=== PATIENT | female | born 1950 | race Caucasian/White ===

== ENCOUNTER 2023-06-26 09:47 | Outpatient (OUT) | payer MEDICARE, SELFPAY ==
--- NOTE | 2023-06-26 10:25 | MM_ITS ---
Patient Name: MEGHAN WU MR#: [id number] : 1950 Exam Date: 06/26/2023 Ordering Doctor: DR JABIER LAWRENCE . RADIOLOGY REPORT PROCEDURE: MM TOMOSYNTHESIS SCREENING BI COMPARISON: MG MAMM LT DIAG FU, 06/25/2022. MG MAMM SCREEN 3D PAMELA CAD, 06/12/2022. MG MAMM SCREEN 3D PAMELA CAD, 06/11/2021. MG MAMM PAMELA SCRN W CAD DIG, 05/02/2015. INDICATIONS: screening Calculator Name NCI Breast Cancer Risk Assessment Tool 5 Year Breast Cancer Risk 2.10% Lifetime Breast Cancer Risk 6.00% Personal Breast Cancer No Personal Ovarian Cancer No Treatments None Family Cancers Father with lymphoma cancer at age 88. LOCATION: [facility] BREAST COMPOSITION: Extremely dense, which lowers the sensitivity of mammography. FINDINGS: DIAGNOSTIC CATEGORY 0--INCOMPLETE: NEED ADDITIONAL IMAGING EVALUATION. RIGHT BREAST: No significant suspicious finding. No significant change has occurred. LEFT BREAST: Multiple partially circumscribed lesions within left breast. There uniform slight increase in size suggests this is due to differences in compression rather than each lesion increasing the same amount in size. No new lesions. Prior ultrasound evaluation showed simple cysts. As a precautionary measure and to help confirm a new baseline, spot magnification views and ultrasound evaluation is recommended. RECOMMENDATIONS: ADDITIONAL MAMMOGRAPHIC VIEWS REQUIRED: LEFT BREAST - LEFT CRANIOCAUDAL SPOT MAGNIFICATION VIEW - LEFT OBLIQUE SPOT MAGNIFICATION VIEW - ULTRASOUND: LEFT BREAST PLEASE NOTE: A NORMAL MAMMOGRAM DOES NOT EXCLUDE THE POSSIBILITY OF BREAST CANCER. A CLINICALLY SUSPICIOUS PALPABLE LUMP SHOULD BE BIOPSIED. Dictated by: Kory Palomo M.D. on 06/26/2023 at 12:27 Approved by: Kory Palomo M.D. on 06/26/2023 at 13:14
== END 2023-06-26 09:48 | disposition home or self-care (01) ==
LOC: MAMMO 09:52
PROVIDERS: PCP Family Medicine; Visit Provider Family Medicine
DX: Z12.31 Encounter for screening mammogram for malignant neoplasm of breast (principal); Z80.7 Family history of other malignant neoplasms of lymphoid, hematopoietic and related tissues; N64.89 Other specified disorders of breast
CPT/HCPCS: 77063; 77067

== ENCOUNTER 2023-07-10 09:53 | Outpatient (OUT) | payer MEDICARE, SELFPAY ==
--- NOTE | 2023-07-10 09:59 | US_ITS ---
Patient Name: MEGHAN WU MR#: [id number] : 1950 Exam Date: 07/10/2023 Ordering Doctor: DR JABIER LAWRENCE . RADIOLOGY REPORT PROCEDURE: MM DIAGNOSTIC MAMMO UNILAT LT, 07/10/2023, 10:01 US BREAST LT LIMITED, 07/10/2023, 10:53 COMPARISON: MM TOMOSYNTHESIS SCREENING BI, 06/26/2023. INDICATIONS: Abnormal Mammogram Left Breast R92.8 Calculator Name NCI Breast Cancer Risk Assessment Tool 5 Year Breast Cancer Risk 2.10% Lifetime Breast Cancer Risk 6.00% Personal Breast Cancer No Personal Ovarian Cancer No Treatments None Family Cancers Father with lymphoma cancer at age 88. LOCATION: [facility] BREAST COMPOSITION: Extremely dense, which lowers the sensitivity of mammography. FINDINGS: DIAGNOSTIC CATEGORY 2--BENIGN FINDING: Spot compression of the left breast demonstrates 2 focal partially circumscribed densities measuring 2.4 x 1.9 cm and 2.5 x 2.2 cm. Ultrasound demonstrates in the left breast at the 9 o'clock position a 2.6 x 1.4 x 2.5 cm area of anechoic echogenicity with no internal blood flow and at the 11 o'clock position a 2.8 x 1.3 x 2.2 cm area of anechoic echogenicity with no internal blood flow. Findings are most consistent with 2 simple cysts. No further evaluation is required. RECOMMENDATIONS: ROUTINE MAMMOGRAM AND CLINICAL EVALUATION IN 12 MONTHS. PLEASE NOTE: A NORMAL MAMMOGRAM DOES NOT EXCLUDE THE POSSIBILITY OF BREAST CANCER. A CLINICALLY SUSPICIOUS PALPABLE LUMP SHOULD BE BIOPSIED. Dictated by: Tulio Manzo MD on 07/10/2023 at 11:16 Approved by: Tulio Manzo MD on 07/10/2023 at 11:18
== END 2023-07-10 09:54 | disposition home or self-care (01) ==
LOC: MAMMO 09:53
PROVIDERS: PCP Family Medicine; Visit Provider Family Medicine
DX: R92.8 Other abnormal and inconclusive findings on diagnostic imaging of breast (principal); Z80.7 Family history of other malignant neoplasms of lymphoid, hematopoietic and related tissues
CPT/HCPCS: 76642; 77065

== ENCOUNTER 2024-07-12 08:21 | Outpatient (OUT) | payer MEDICARE, SELFPAY ==
--- NOTE | 2024-07-12 08:24 | MM_ITS ---
Patient Name: MEGHAN WU MR#: [id number] : 1950 Exam Date: 07/12/2024 Ordering Doctor: DR JABIER LAWRENCE . RADIOLOGY REPORT PROCEDURE: MM TOMOSYNTHESIS SCREENING BI COMPARISON: MM TOMOSYNTHESIS SCREENING BI, 06/26/2023. MM DIAGNOSTIC MAMMO UNILAT LT, 07/10/2023. INDICATIONS: Screening Calculator Name NCI Breast Cancer Risk Assessment Tool 5 Year Breast Cancer Risk 2.10% Lifetime Breast Cancer Risk 5.80% Personal Breast Cancer No Personal Ovarian Cancer No Treatments None Family Cancers Father with lymphoma cancer at age 88. LOCATION: [facility] BREAST COMPOSITION: The breasts are extremely dense, which lowers the sensitivity of mammography. FINDINGS: DIAGNOSTIC CATEGORY 2--BENIGN FINDING. NO CHANGE FROM COMPARISON. Scattered benign-appearing nodules are present. Scattered benign-appearing calcifications are present. Scattered benign-appearing lymph nodes are present. RIGHT BREAST: No significant suspicious finding. LEFT BREAST: No significant suspicious finding. RECOMMENDATIONS: ROUTINE MAMMOGRAM AND CLINICAL EVALUATION IN 12 MONTHS. PLEASE NOTE: A NORMAL MAMMOGRAM DOES NOT EXCLUDE THE POSSIBILITY OF BREAST CANCER. A CLINICALLY SUSPICIOUS PALPABLE LUMP SHOULD BE BIOPSIED. Dictated by: Tulio Manzo MD on 07/12/2024 at 10:18 Approved by: Tulio Manzo MD on 07/12/2024 at 10:21
--- OUTSIDE RECORDS SUMMARY | 2024-07-12 08:36 | XMS_ITS | CCD ---
Author Organization [facility] Care Team Providers Care Lawyer Name Role Phone HOWARD, DR EUGENE Admitting Unavailable HOWARD, DR EUGENE Attending Unavailable MISC, DR WARREN Primary Care Unavailable PENELOPEYER, DR EUGENE Consulting Unavailable ZOË, DR MARLO Crook Consulting Unavailable PENELOPEYER, DR EUGENE Admitting Unavailable HEMEYER, DR EUGENE Attending Unavailable MISC, DR WARREN Primary Care Unavailable PENELOPEYER, DR EUGENE Consulting Unavailable TRISHA, DR JUVE Cobian Consulting Unavailable Jo Khoury Unavailable DANIEL EM Referring Unavailable DANIEL EM Referring Unavailable DANIEL EM Referring Unavailable Alfred Lawrence MD Unavailable Alfred Lawernce MD Primary Care Provider Alfred Lawrence MD Unavailable Alfred Lawrence MD Primary Care Provider Alfred Lawrence MD Unavailable Alfred Lawrence MD Primary Care Provider DANIEL EM Attending Unavailable DANIEL EM Referring Unavailable ALFRED LAWRENCE Attending Unavailable JR. CARUSO GEORGE C Attending Unavaila DANIEL Raza Attending Unavailable BENNY HAY Attending Unavailable DANIEL EM Referring Unavailable ALFRED LAWRENCE Attending Unavailable DANIEL EM Attending Unavailable DANIEL EM Referring Unavailable MARIA DEL CARMEN TODD Attending Unavailable DANIEL EM Referring Unavailable DANIEL EM Attending Unavailable QUIANA SKELTON Attending Unavailable DANIEL EM Referring Unavailable FRED KING Attending Unavailable DANIEL EM Referring Unavailable FRED KING Attending Unavailable DANIEL EM Referring Unavailable KELBLEY, QUIANA Attending Unavailable EM, DANIEL J Referring Unavailable KELBLEY, QUIANA Attending Unavailable EM, DANIEL J Referring Unavailable BRINK, FRED Attending Unavailable EM, DANIEL J Referring Unavailable TODD, MARIA DEL CARMEN Attending Unavailable EM, DANIEL J Referring Unavailable BRINK, FRED Attending Unavailable EM, DANIEL J Referring Unavailable BRINK, FRED Attending Unavailable EM, DANIEL J Referring Unavailable KELBLEY, QUIANA Attending Unavailable EM, DANIEL J Referring Unavailable TODD, MARIA DEL CARMEN Attending Unavailable EM, DANIEL J Referring Unavailable BRINK, FRED Attending Unavailable EM, DANIEL J Referring Unavailable JR ELFEGO., FRANCES Sales Attending Unavaila ble JR ELFEGO., FRANCES Sales Referring Unavaila ble KELBLEY, QUIANA Attending Unavailable EM, DANIEL J Referring Unavailable KELBLEY, QUIANA Attending Unavailable EM, DANIEL J Referring Unavailable BRINK, FRED Attending Unavailable EM, DANIEL J Referring Unavailable KELBLEY, QUIANA Attending Unavailable EM, DANIEL J Referring Unavailable KELBLEY, QUIANA Attending Unavailable EM, DANIEL J Referring Unavailable JR ELFEGO., FRANCES Sales Attending Unavaila ble KELBLEY, QUIANA Attending Unavailable EM, DANIEL J Referring Unavailable KELBLEY, QUIANA Attending Unavailable EM, DANIEL J Referring Unavailable TODD, MARIA DEL CARMEN Attending Unavailable EM, DANIEL J Referring Unavailable TODD, MARIA DEL CARMEN Attending Unavailable EM, DANIEL J Referring Unavailable STEPJR BERNARDINO., FRANCES Sales Referring Unavaila ble BRINK, FRED Attending Unavailable EM, DANIEL J Referring Unavailable KELBLEY, QUIANA Attending Unavailable EM, DANIEL J Referring Unavailable STEPJR BERNARDINO., FRANCES Sales Attending Unavaila ble KELBLEY, QUIANA Attending Unavailable EM, DANIEL J Referring Unavailable KELBLEY, QUIANA Attending Unavailable EM, DANIEL J Referring Unavailable KELBLEY, QUIANA Attending Unavailable EM, DANIEL J Referring Unavailable KELBLEY, QUIANA Attending Unavailable EM, DANIEL J Referring Unavailable BRINK, FRED Attending Unavailable EM, DANIEL J Referring Unavailable KELBLEY, QUIANA Attending Unavailable EM, DANIEL J Referring Unavailable BRINK, FRED Attending Unavailable EM, DANIEL J Referring Unavailable BRINK, FRED Attending Unavailable EM, DANIEL J Referring Unavailable TODD, MARIA DEL CARMEN Attending Unavailable EM, DANIEL J Referring Unavailable STEPJR BERNARDINO., FRANCES Sales Attending Unavaila ble Allergies Allergy Classification Reported Allergen(s) Allergy Type Date of Onset Reaction(s) Facility (1 source) Alendronate Drug Allergy 05-24-2016 [facility] Repository (20 sources) Alendronate Drug Allergy 10-10-2021 [facility]ralg[facility] Medications Current Medications Medication Drug Class(es) Dates Sig (Normalized) Sig (Original) acetaminophen 325 mg / oxyCODONE hydrochloride 5 mg oral tablet (7 sources) Opioid Agonist Start: 02-11-2024 End: 03-01-2024 take 1 tablet by mouth every six hours for pain oxyCODONE-acetaminop hen (Percocet) 5-325 MG tablet Indications: Post-operative pain Take 1 tablet by mouth every 6 (six) hours if needed for moderate pain for up to 5 days 20 tablet 02/25/2024 03/01/2024 Active ascorbic acid 1000 mg oral tablet (20 sources) Vitamin C take 1 tablet by mouth in the morning Ascorbic Acid (vitamin C) 1000 MG tablet Take 1,000 mg by mouth in the morning. Active Calcium + D 315-200 MG-UNIT (1 source) take 1 tablet by mouth once daily at mealtime Calcium + D 315-200 MG-UNIT 1 tablet with meals Orally once a day Active calcium citrate 1040 mg oral tablet (20 sources) take 1 tablet by mouth in the morning calcium citrate 250 MG tablet Take 1 tablet by mouth in the morning. Active cholecalciferol 0.25 mg oral tablet (20 sources) Vitamin D take 1 tablet by mouth once daily cholecalciferol (Vitamin D-3) 250 MCG (24874 UT) tablet Take 10,000 Units by mouth Daily Winter dose Active take 1 tablet by mouth once natalia y cholecalciferol (Vitamin D-3) 125 MCG (5000 UT) tablet Take 5,000 Units by mouth Daily Summer Dose Active Eye Vitamins - (1 source) Eye Vitamins - O rally *please review for potential _update for e-prescription and drug interaction check* Active Multi Complete - (1 source) Multi Complete - Orally Active Multiple Vitamins-Minerals (Multi Complete) capsule (20 sources) Multiple Vitamins-Minerals (Multi Complete) capsule Orally Active rivaroxaban 20 mg oral tablet (20 sources) Factor Xa Inhibitor Start: 4 End: 4 take 1 tablet by mouth in the evening rivaroxaban (Xarelto) 20 MG tablet Indications: Acute deep vein thrombosis (DVT) of right peroneal vein (HCC) (CMS/HCC) Take 1 tablet (20 mg) by mouth in the evening. Take with meals for 11 days Take with food. Do not start before March 18, 2024. 11 tablet 03/18/2024 Active Start: 02-25-2024 End: 06-08-2024 take 1 tablet by mouth in the morning rivaroxaban (Xarelto) 15 MG tablet Indications: Acute deep vein thrombosis (DVT) of right peroneal vein (HCC) (CMS/HCC) Take 1 tablet (15 mg) by mouth in the morning and 1 tablet (15 mg) in the evening. Take with meals. Do all this for 21 days. Take with food.. 42 tablet 02/25/2024 06/08/2024 Discontinued (Therapy completed) Vitamin D3 5000IU 10,000 Units (1 source) Start: 05-15-2016 Vitamin D3 500 0IU 10,000 Units as directed orally daily *please review for potential _update for e-prescription and drug interaction check* 5,000 units spring/summerApr, Active VITAMIN K PO (20 sources) take 1 tablet by mouth in the morning VITAMIN K PO Take 1 tablet by mouth in the morning. Active Completed/Discontinued Medications Medication Drug Class(es) Dates Sig (Normalized) Sig (Original) azelastine hydrochloride 0.137 mg/actuat metered dose nasal spray (1 source) Histamine-1 Receptor Antagonist Start: 03-17-2018 take 2 puff(s) nasal route twice daily as needed Azelastine HCl 0.1 % 2 puff in each nostril Nasally Twice a day for 30 day(s) prn Feb, Not-Taking Vitamin C 1000 MG (1 source) take 1 tablet by mouth once daily Vitamin C 1000 MG 1 tablet Orally Once a day Not-Taking Problems Active Problems Problem Classification Problem Date Documented Da te Episodic/Chronic Chronic kidney disease (20 sources) Chronic kidney disease stage 2; Translations: [Chronic kidney disease, stage 2 (mild)] Onset: 10-17-2023 10-17-2023 Chronic Inflammation; infection of eye (except that caused by tuberculosis or sexually transmitteddisease) (1 source) Viral conjunctivitis, unspecified Episodic Nutritional deficiencies (20 sources) Vitamin D deficiency; Translations: [Vitamin D deficiency, unspecified] Onset: 10-17-2023 10-17-2023 Chronic Osteoarthritis (20 sources) Osteoarthritis of right knee joint; Translations: [Unilateral primary osteoarthritis, right knee] Onset: 10-17-2023 10-17-2023 Chronic Other connective tissue disease (20 sources) History of total knee arthroplasty; Translations: [Presence of right artificial knee joint] 03-31-2024 Chronic Other connective tissue disease (6 sources) Pain of right calf; Translations: [Pain in right lower leg] 04-20-2024 Episodic Other liver diseases (1 source) Non-alcoholic fatty liver; Translations: [Fatty (change of) liver, not elsewhere classified] Chronic Other liver diseases (20 sources) Fatty (change of) liver, not elsewhere classified; Translations: [Other chronic nonalcoholic liver disease] Onset: 10-17-2023 10-17-2023 Chronic Other nervous system disorders (20 sources) Chronic pain syndrome; Translations: [Chronic pain syndrome] Onset: 10-17-2023 10-17-2023 Chronic Other non-traumatic joint disorders (18 sources) Pain in right knee; Translations: [Pain in joint, lower leg] 04-05-2024 Episodic Other screening for suspected conditions (not mental disorders or infectious disease) (9 sources) Other abnormal and inconclusive findings on diagnostic imaging of breast; Translations: [Encounter for screening mammogram for malignant neoplasm of breast] Onset: 06-12-2022 Episodic Other upper respiratory disease (1 source) Allergic rhinitis; Translations: [Other allergic rhinitis] Chronic Phlebitis; thrombophlebitis and thromboembolism (5 sources) Acute embolism and thrombosis of right peroneal vein; Translations: [Acute venous embolism and thrombosis of deep vessels of distal lower extremity] 05-10-2024 Episodic Residual codes; unclassified (1 source) Family history of other malignant neoplasms of lymphoid, hematopoietic and related tissues; Translations: [FAM HX OTH MAL MEGHAN LYMPH HEMATPOETC] Onset: 06-28-2022 Episodic Residual codes; unclassified (1 source) Normal body mass index; Translations: [Other specified health status] Episodic Unclassified (2 sources) Acute pain of right knee 05-10-2024 Past or Other Problems Problem Classification Problem Date Documented Da te Episodic/Chronic Mood disorders (20 sources) Mood disorders Onset: 10-23-2023 10-23-2023 Other bone disease and musculoskeletal deformities (20 sources) Osteopenia; Translations: [Other specified disorders of bone density and structure, unspecified site] Onset: 10-17-2023 10-17-2023 Episodic Other nervous system disorders (3 sources) Postoperative pain ; Translations: [Other acute postprocedural pain] 02-16-2024 Episodic Results Test Name Value Interpretation Reference Range Facility [facility] US LOWER EXTREMITY VENO US DUPLEX RIGHTon 04-19-2024 [facility] US LOWER EXTREMITY VENOUS DUPLEX RIGHT EXAM: Right Lower Extremity Venous Ultrasound. REASON FOR EXAM: Hist of peroneal DVT. COMPARISON: Right lower extremity venous Doppler February 25, 2024. TECHNIQUE: Longitudinal and transverse grayscale, color Doppler, spectral wave analysis of the right lower extremity venous system. FINDINGS: The visualized common femoral, femoral, popliteal, peroneal, posterior tibial, greater saphenous veins showed normal compressibility, Doppler signal, response to augmentation and respiratory variability where applied. Peroneal veins are patent on the current study. IMPRESSION: No sonographic evidence of residual deep venous thrombosis. Peroneal veins are patent on the current exam, thrombus no longer visualized. This report is generated using voice recognition reporting (ZipZap). On occasion, [email or web address] erroneously drops words from the report or replaces the spoken word with a similar sounding word. Please call with any questions/concerns regarding the report. Dictated and transcribed 05/04/2024/tm This report has been electronically signed and approved by the interpreting radiologist. Normal Not Available XR Knee - right 1 or 2 Views on 04-05-2024 Imaging Result: AP and lateral of right knee showed surgical position and alignment of prosthetic components without evidence of loosening or wear to the femoral, tibial, or patellar components. The alignment appeared to be anatomic. There was no evidence of accelerated or asymmetric wear to the patellar button or tibial tray. There was no evidence of fracture and/or dislocation. Impression: Unremarkable right total knee arthroplasty. [facility] Radiology Study observation (narrative) [facility] US LOWER EXTREMITY VENO US DUPLEX RIGHTon 02-25-2024 [facility] US LOWER EXTREMITY VENOUS DUPLEX RIGHT EXAM: Right Lower Extremity Venous Ultrasound: REASON FOR EXAM: Right calf pain. COMPARISON: None TECHNIQUE: Longitudinal and transverse grayscale, color Doppler, spectral wave analysis of the right lower extremity deep venous system obtained. FINDINGS: There is normal Doppler signal and compressibility of the common femoral, femoral, popliteal, posterior tibial and saphenous veins. The peroneal vein does not compress. Distended with hypoechoic material. No color flow. Findings were called to Anoop Navarrete, the ordering provider February 25, 2024 at 11:00 a.m. IMPRESSION: Acute occlusive peroneal deep venous thrombus, below the knee. *This report is generated using voice recognition reporting (triptap). On occasion Attune RTDcribe erroneously drops words from the report or replaces the spoken word with similar sounding words. Please call with any questions/concerns regarding this report.* Dictated and transcribed 02/25/24/dpd This report has been electronically signed and approved by the interpreting radiologist. Electronically Signed Hong Frances II, M.D. 2024-02-25 11:41:07 Normal Not Available CBC AND AUTO DIFFon 01-14-20 24 ABSOLUTE BASOPHIL 0.0 X10E9/L Normal 0.0-0.2 [facility] Comment on above: Performed By: #### P INR, 95792-8 #### [facility] ([id number]) [address] [place] [address] 35023 #### CBCA, CMP #### [facility] ([id number]) [address] [facility], [address] [place] [address] ABSOLUTE NEUTROPHIL 4.1 X10E9/L Normal 1.5-6.6 [facility] Comment on above: Performed By: #### P INR, 37205-4 #### [facility] ([id number]) [address] [place] [address] 08407 #### CBCA, CMP #### [facility] ([id number]) [address], [address] [place] [address] Basophils/100 WBC (Bld) 0.6 % Normal [facility] Comment on above: Performed By: #### P INR, 49086-6 #### [facility] ([id number]) [address] [place] [address] 69788 #### CBCA, CMP #### [facility] ([id number]) [address] [facility], [facility] [address] [place] [address] Eosinophils (Bld) [#/Vol] 0.1 10*3/uL Normal 0.0-0.4 [facility] Comment on above: Performed By: #### P INR, 56286-5 #### [facility] ([id number]) [address] [place] [address] 34171 #### CBCA, CMP #### [facility] ([id number]) [address] [place] [address] [address] [place] [address] Eosinophils/100 WBC (Bld) 1.5 % Normal [facility] Comment on above: Performed By: #### P INR, 53358-1 #### [facility] ([id number]) [address] [place] [address] 37057 #### CBCA, CMP #### [facility] ([id number]) [address] [place] [address], [facility] [address] [place] [address] Erythrocyte distribution width (RBC) [Ratio] 13.0 % Normal 11.5-15.0 [facility] Comment on above: Performed By: #### P INR, 53332-3 #### [facility] ([id number]) [address] [place] [address] 85464 #### CBCA, CMP #### [facility] ([id number]) [address] [facility], [address] [place] [address] Hematocrit (Bld) [Volume fraction] 43.7 % Normal 35-47 [facility] Comment on above: Performed By: #### P INR, 75820-1 #### [facility] ([id number]) [address] [place] [address] 32075 #### CBCA, CMP #### [facility] ([id number]) [address], [address] [place] [address] Hemoglobin (Bld) [Mass/Vol] 14.4 g/dL Normal 11.7-15.5 [facility] Comment on above: Performed By: #### P INR, 64185-3 #### [facility] ([id number]) [address] [place] [address] 49628 #### CBCA, CMP #### [facility] ([id number]) [address], [address] [place] [address] Lymphocytes (Bld) [#/Vol] 1.6 10*3/uL Normal 1.0-3.5 [facility] Comment on above: Performed By: #### P INR, 15541-0 #### [facility] ([id number]) [address] [place] [address] 98660 #### CBCA, CMP #### [facility] ([id number]) [address] [facility], [address] [place] [address] Lymphocytes/100 WBC (Bld) 25.3 % Normal [facility] Comment on above: Performed By: #### P INR, 45561-9 #### [facility] ([id number]) [address] [place] [address] 77427 #### CBCA, CMP #### [facility] ([id number]) [address] [place] [address] MCH (RBC) [Entitic mass] 30.1 pg Normal 27-34 [facility] Comment on above: Performed By: #### P INR, 87853-8 #### [facility] ([id number]) [address] [place] [address] 30777 #### CBCA, CMP #### [facility] ([id number]) [address], [address] [place] [address] MCHC (RBC) [Mass/Vol] 32.9 g/dL Normal 32-36 [facility] Comment on above: Performed By: #### P INR, 26381-6 #### [facility] ([id number]) [address] [place] [address] 77581 #### CBCA, CMP #### [facility] ([id number]) [address], [address] [place] [address] MCV (RBC) [Entitic vol] 92 fL Normal 80-100 [facility] Comment on above: Performed By: #### P INR, 28538-4 #### [facility] ([id number]) [address] [place] [address] 96533 #### CBCA, CMP #### [facility] ([id number]) [address], [address] [place] [address] Monocytes (Bld) [#/Vol] 0.6 10*3/uL Normal 0-0.9 [facility] Comment on above: Performed By: #### P INR, 34339-3 #### [facility] ([id number]) [address] [place] [address] 78357 #### CBCA, CMP #### [facility] ([id number]) [address], [address] [place] [address] Monocytes/100 WBC (Bld) 8.6 % Normal [facility] Comment on above: Performed By: #### P INR, 00791-2 #### [facility] ([id number]) [address] [place] [address] 82785 #### CBCA, CMP #### [facility] ([id number]) [address], [address] [place] [address] Neutrophils/100 WBC (Bld) 64.0 % Normal [facility] Comment on above: Performed By: #### P INR, 86502-4 #### [facility] ([id number]) [address] [place] [address] 07229 #### CBCA, CMP #### [facility] ([id number]) [address], [address] [place] [address] Platelet mean volume (Bld) [Entitic vol] 8.2 fL Normal 7-12 [facility] Comment on above: Performed By: #### P INR, 59410-4 #### [facility] ([id number]) [address] [place] [address] 20720 #### CBCA, CMP #### [facility] ([id number]) [address] [place] [address] Platelets (Bld) [#/Vol] 261 10*3/uL Normal 150-450 [facility] Comment on above: Performed By: #### P INR, 63194-7 #### [facility] ([id number]) [address] [place] [address] 55036 #### CBCA, CMP #### [facility] ([id number]) [address] [place] [address] RBC COUNT 4.77 X10E12/L Normal 3.80-5.20 [facility] Comment on above: Performed By: #### P INR, 82777-2 #### [facility] ([id number]) [address] [place] [address] 29178 #### CBCA, CMP #### [facility] ([id number]) [address] [place] [address] WBC (Bld) [#/Vol] 6.4 10*3/uL Normal 4.0-11.0 [facility] Comment on above: Performed By: #### P INR, 53474-2 #### [facility] ([id number]) [address] [place] [address] 28659 #### CBCA, CMP #### [facility] ([id number]) [address], [address] [place] [address] COMPREHENSIVE METABOLIC PANE [facility] 01-14-2024 Albumin [Mass/Vol] 4.8 g/dL Normal 3.2-5.3 [facility] Comment on above: Performed By: #### P INR, 05405-0 #### [facility] ([id number]) [address] [place] [address] 16873 #### CBCA, CMP #### [facility] ([id number]) [address] [place] [address] ALP [Catalytic activity/Vol] 117 U/L Normal 39-130 [facility] Comment on above: Performed By: #### P INR, 36471-3 #### [facility] ([id number]) [address] [place] [address] 91154 #### CBCA, CMP #### [facility] ([id number]) [address] [place] [address] ALT [Catalytic activity/Vol] 20 U/L Normal 0-31 [facility] Comment on above: Performed By: #### P INR, 79542-2 #### [facility] ([id number]) [address] [place] [address] 32721 #### CBCA, CMP #### [facility] ([id number]) [address] [place] [address] Anion gap [Moles/Vol] 9 mmol/L Normal 5-15 [facility] Comment on above: Performed By: #### P INR, 27459-8 #### [facility] ([id number]) [address] [place] [address] 16979 #### CBCA, CMP #### [facility] ([id number]) [address] [facility], [address] [place] [address] AST [Catalytic activity/Vol] 25 U/L Normal 0-41 [facility] Comment on above: Performed By: #### P INR, 20190-2 #### [facility] ([id number]) [address] [place] [address] 87823 #### CBCA, CMP #### [facility] ([id number]) [facility] [facility] [place] [address] Bilirubin [Mass/Vol] 0.8 mg/dL Normal 0.3-1.2 [facility] Comment on above: Performed By: #### P INR, 05040-7 #### [facility] ([id number]) [address] [place] [address] 25674 #### CBCA, CMP #### [facility] ([id number]) [address] [facility], [address] [place] [address] Calcium [Mass/Vol] 10.3 mg/dL Normal 8.5-10.5 [facility] Comment on above: Performed By: #### P INR, 30547-3 #### [facility] ([id number]) [address] [place] [address] 89324 #### CBCA, CMP #### [facility] ([id number]) [address] [facility], [address] [place] [address] Chloride [Moles/Vol] 102 mmol/L Normal 98-109 [facility] Comment on above: Performed By: #### P INR, 48356-9 #### [facility] ([id number]) [address] [place] [address] 59584 #### CBCA, CMP #### [facility] ([id number]) [address] [place] [address] CO2 [Moles/Vol] 31 mmol/L Normal 22-32 [facility] Comment on above: Performed By: #### P INR, 26888-3 #### [facility] ([id number]) [address] [place] [address] 82681 #### CBCA, CMP #### [facility] ([id number]) [address] [facility], [address] [place] [address] Creatinine [Mass/Vol] 0.73 mg/dL Normal 0.40-1.00 [facility] Comment on above: Result Comment: METH OD TRACEABLE TO IDMS STANDARD Performed By: #### P INR, 95622-8 #### [facility] ([id number]) [address] [place] [address] #### CBCA, CMP #### [facility] ([id number]) [address], [address] [place] [address] GFR/1.73 sq M.predicted among non-blacks MDRD (S/P/Bld) [Vol rate/Area] 88 mL/min/{1.73_m2} Normal >59 [facility] Comment on above: Result Comment: Reported eGFR is based on the CKD-EPI 2020 equation that does not use a race coefficient. Performed By: #### P INR, 59222-2 #### [facility] ([id number]) [address] [place] [address] #### CBCA, CMP #### [facility] ([id number]) [address], [address] [place] [address] Glucose [Mass/Vol] 79 mg/dL Normal 65-99 [facility] Comment on above: Performed By: #### P INR, 19009-3 #### [facility] ([id number]) [address] [place] [address] #### CBCA, CMP #### [facility] ([id number]) [address], [address] [place] [address] Potassium [Moles/Vol] 3.8 mmol/L Normal 3.5-5.0 [facility] Comment on above: Performed By: #### P INR, 44832-7 #### [facility] ([id number]) [address] [place] [address] #### CBCA, CMP #### [facility] ([id number]) [facility], [address] [place] [address] Protein [Mass/Vol] 7.6 g/dL Normal 6.0-8.0 [facility] Comment on above: Performed By: #### P INR, 20866-2 #### [facility] ([id number]) [address] [place] [address] #### CBCA, CMP #### [facility] ([id number]) [facility], [address] [place] [address] Sodium [Moles/Vol] 142 mmol/L Normal 134-146 [facility] Comment on above: Performed By: #### P INR, 87449-8 #### [facility] ([id number]) [address] [place] [address] #### CBCA, CMP #### [facility] ([id number]) [address], [address] [place] [address] Urea nitrogen [Mass/Vol] 14 mg/dL Normal 5-27 [facility] Comment on above: Performed By: #### P INR, 06737-1 #### [facility] ([id number]) [address] [place] [address] 76785 #### CBCA, CMP #### [facility] ([id number]) [address], [address] [place] [address] PROTIME AND INRon 01-14-2024 INR Coag (PPP) [Relative time] 1.0 {INR} Normal 0.8-1.1 [facility] Comment on above: Performed By: #### P INR, 24010-2 #### [facility] ([id number]) [address] [place] [address] #### CBCA, CMP #### [facility] ([id number]) [address], [address] [place] [address] PT Coag (PPP) [Time] 12.1 s Normal 9.8-13.2 [facility] Comment on above: Result Comment: NEW REFERENCE RANGE Performed By: #### P INR, 64882-3 #### [facility] ([id number]) [address] [place] [address] #### CBCA, CMP #### [facility] ([id number]) [address], [address] [place] [address] URINALYSISon 01-14-2024 Bilirubin Ql (U) Negative Normal NEG [facility] Comment on above: Performed By: #### U A #### [facility] ([id number]) [address], [address] [place] [address] BLOOD/HGB Negative Normal NEG [facility] Comment on above: Performed By: #### U A #### [facility] ([id number]) [address], [address] [place] [address] Color (U) YELLOW Normal YELLOW [facility] Comment on above: Performed By: #### U A #### [facility] ([id number]) [address], [address] [place] [address] Glucose Ql (U) Negative Normal NEG [facility] Comment on above: Performed By: #### U A #### [facility] ([id number]) [address], [address] [place] [address] Ketones Ql (U) Negative Normal NEG [facility] Comment on above: Performed By: #### U A #### [facility] ([id number]) [address], [address] [place] [address] Leukocyte esterase Test strip Ql (U) Negative Normal NEG [facility] Comment on above: Performed By: #### U A #### [facility] ([id number]) [address], [address] [place] [address] Nitrite Ql (U) Negative Normal NEG [facility] Comment on above: Performed By: #### U A #### [facility] ([id number]) [address], [address] [place] [address] pH (U) 7.5 [pH] Normal 5.0-8.5 [facility] Comment on above: Performed By: #### U A #### [facility] ([id number]) [address], [address] [place] [address] Protein Ql (U) Negative Normal NEG [facility] Comment on above: Performed By: #### U A #### [facility] ([id number]) [address], [address] [place] [address] Specific gravity (U) [Rel density] 1.006 Normal 1.003-1.035 [facility] Comment on above: Performed By: #### U A #### [facility] ([id number]) [address], [address] [place] [address] TURBIDITY CLEAR Normal CLEAR [facility] Comment on above: Performed By: #### U A #### [facility] ([id number]) [address], [address] [place] [address] Urobilinogen (U) [Mass/Vol] mg/dL Normal <1.1 [facility] Comment on above: Performed By: #### U A #### [facility] ([id number]) [address], [address] [place] [address] URINE CULTUREon 01-14-2024 Bacteria identified Cx Nom (U) CULTURE RESULTS <10,000 ORGANISMS/ML NORMAL URO GENITAL JAZMIN Normal [facility] Comment on above: Performed By: #### 6 30-4 #### [facility] ([id number]) [address] [place] [address] aPTT Coag (PPP) [Time]on aPTT Coag (Bld) [Time] 35 s Normal 26-37 [facility] Comment on above: Result Comment: NEW REFERENCE RANGE Performed By: #### P INR, 83242-3 #### [facility] ([id number]) [address] [place] [address], [place] [address] #### CBCA, CMP #### [facility] ([id number]) [address], [address] [place] [address] XR Knee Complete Right*on XR Knee Complete Right* CLINICAL HISTORY: Right knee pain for 4-5 months. No recent injury. COMPARISON: None. RESULT: No acute fracture. No dislocation. Small joint effusion. Tricompartmental osteophytes. Mild to moderate medial and lateral compartment narrowing. Soft tissues unremarkable. IMPRESSION: No acute osseous findings. Osteoarthritis. Report reported and signed by Tarun Enriquez on 11/04/2022 1305 Normal [facility] Director Content Marketing MG MAMM LT DIAG FUon 022 MG MAMM LT DIAG FU Patient: NAZIA WU Exam Date: 06/25/2022 : 1950 Gender:F Ordering : DR ALFRED LAWRENCE . Admission #: [id number] Family : Order #: [id number] CLICK HERE TO VIEW EXAM RADIOLOGY REPORT PROCEDURE: MAMMOGRAM LEFT DIAGNOSTIC DIGITAL FOLLOW UP, 06/25/2022, 13:50 ULTRASOUND BREAST LEFT LIMITED, 06/25/2022, 14:25 COMPARISON: MG MAMM SCREEN 3D PAMELA CAD, 06/12/2022. INDICATIONS: Abnormal findings on diagnostic imaging of breast Calculator Name NCI Breast Cancer Risk Assessment Tool 5 Year Breast Cancer Risk 2.10% Lifetime Breast Cancer Risk 6.30% Personal Breast Cancer No Personal Ovarian Cancer No Treatments None Family Cancers Father with lymphoma cancer at age 88. LOCATION: [facility] BREAST COMPOSITION: Extremely dense, which lowers the sensitivity of mammography. FINDINGS: DIAGNOSTIC CATEGORY 2--BENIGN FINDING: Two spot compression views of the left breast demonstrate persistent focal well-circumscribed masses, both are seen on the CC projection measuring 1.8 x 2.2 cm and 3.0 x 2.1 cm. Single lesion seen on the MLO projection 2.4 x 1.8 cm. Ultrasound demonstrates 2 focal lesions at the 9 o'clock position in the area oval anechoic echogenicity within imperceptible met wall measuring 2.2 x 1.4 x 1.1 cm with increased acoustic through transmission consistent with a simple cyst. At the 11 o'clock position in oval lesion with some internal echoes measuring 1.9 x 1.5 x 1.1 cm. Both lesions demonstrate increased acoustic through transmission. The 11 o'clock lesion likely represents a complex cyst RECOMMENDATIONS: ROUTINE MAMMOGRAM AND CLINICAL EVALUATION IN 12 MONTHS. PLEASE NOTE: A NORMAL MAMMOGRAM DOES NOT EXCLUDE THE POSSIBILITY OF BREAST CANCER. A CLINICALLY SUSPICIOUS PALPABLE LUMP SHOULD BE BIOPSIED. Dictated by: Juve Manzo MD on 06/25/2022 at 15:04 Approved by: Juve Manzo MD on 06/25/2022 at 15:15 Normal [facility] US BREAST LEFT LIMITEDon US BREAST LEFT LIMITED Patient: ROSE WU Exam Date: 06/25/2022 : 1950 Gender:F Ordering : DR ALFRED LAWRENCE . Admission #: [id number] Family : Order #: [id number] CLICK HERE TO VIEW EXAM RADIOLOGY REPORT PROCEDURE: MAMMOGRAM LEFT DIAGNOSTIC DIGITAL FOLLOW UP, 06/25/2022, 13:50 ULTRASOUND BREAST LEFT LIMITED, 06/25/2022, 14:25 COMPARISON: MG MAMM SCREEN 3D PAMELA CAD, 06/12/2022. INDICATIONS: Abnormal findings on diagnostic imaging of breast Calculator Name NCI Breast Cancer Risk Assessment Tool 5 Year Breast Cancer Risk 2.10% Lifetime Breast Cancer Risk 6.30% Personal Breast Cancer No Personal Ovarian Cancer No Treatments None Family Cancers Father with lymphoma cancer at age 88. LOCATION: [facility] BREAST COMPOSITION: Extremely dense, which lowers the sensitivity of mammography. FINDINGS: DIAGNOSTIC CATEGORY 2--BENIGN FINDING: Two spot compression views of the left breast demonstrate persistent focal well-circumscribed masses, both are seen on the CC projection measuring 1.8 x 2.2 cm and 3.0 x 2.1 cm. Single lesion seen on the MLO projection 2.4 x 1.8 cm. Ultrasound demonstrates 2 focal lesions at the 9 o'clock position in the area oval anechoic echogenicity within imperceptible met wall measuring 2.2 x 1.4 x 1.1 cm with increased acoustic through transmission consistent with a simple cyst. At the 11 o'clock position in oval lesion with some internal echoes measuring 1.9 x 1.5 x 1.1 cm. Both lesions demonstrate increased acoustic through transmission. The 11 o'clock lesion likely represents a complex cyst RECOMMENDATIONS: ROUTINE MAMMOGRAM AND CLINICAL EVALUATION IN 12 MONTHS. PLEASE NOTE: A NORMAL MAMMOGRAM DOES NOT EXCLUDE THE POSSIBILITY OF BREAST CANCER. A CLINICALLY SUSPICIOUS PALPABLE LUMP SHOULD BE BIOPSIED. Dictated by: Juve Manzo MD on 06/25/2022 at 15:04 Approved by: Juve Manzo MD on 06/25/2022 at 15:15 Normal [facility] MG MAMM SCREEN 3D PAMELA CADon 06-12-2022 MG MAMM SCREEN 3D PAMELA CAD Patient: ROSE WU Exam Date: 06/12/2022 : 1950 Gender:F Ordering : DR ALFRED LAWRENCE . Admission #: [id number] Family : Order #: [id number] CLICK HERE TO VIEW EXAM RADIOLOGY REPORT PROCEDURE: MAMMOGRAM SCREENING 3D BILATERAL CAD COMPARISON: MG MAMM SCREEN 3D PAMELA CAD, 06/11/2021. MG MAMM SCREEN PAMELA W CAD, 06/09/2020. INDICATIONS: Screening mammography Calculator Name NCI Breast Cancer Risk Assessment Tool 5 Year Breast Cancer Risk 2.10% Lifetime Breast Cancer Risk 6.30% Personal Breast Cancer No Personal Ovarian Cancer No Treatments None Family Cancers Father with lymphoma cancer at age 88. LOCATION: [facility] BREAST COMPOSITION: Extremely dense, which lowers the sensitivity of mammography. FINDINGS: DIAGNOSTIC CATEGORY 0--INCOMPLETE: NEED ADDITIONAL IMAGING EVALUATION. RIGHT BREAST: No significant suspicious finding. Scattered benign-appearing calcifications are present. No significant change has occurred. LEFT BREAST: Several partially circumscribed masses versus cyst within left breast predominant involving the upper lower inner quadrants and likely lower-outer quadrant. Two largest lesions are 2.6 cm in 2.1 cm. Stable benign calcifications. Spot magnification views and ultrasound evaluation recommended. RECOMMENDATIONS: ADDITIONAL MAMMOGRAPHIC VIEWS REQUIRED: LEFT BREAST - LEFT CRANIOCAUDAL SPOT MAGNIFICATION VIEW - LEFT OBLIQUE SPOT MAGNIFICATION VIEW - ULTRASOUND: LEFT BREAST upper inner, lower inner, lower outer quadrant. PLEASE NOTE: A NORMAL MAMMOGRAM DOES NOT EXCLUDE THE POSSIBILITY OF BREAST CANCER. A CLINICALLY SUSPICIOUS PALPABLE LUMP SHOULD BE BIOPSIED. Dictated by: Marlo Palomo M.D. on 06/12/2022 at 14:50 Approved by: Marlo Palomo M.D. on 06/12/2022 at 14:57 Normal [facility] MRI Hand w/o + w/ Righton MRI Hand w/o + w/ Right HISTORY: Ulnar-sided hand pain for 6 weeks. Mass. COMPARISON: Radiographs of the hand 02/11/2022 TECHNIQUE: Multiplanar multisequence MRI of the hand was performed without and with contrast FINDINGS: A marker was placed on the dorsal aspect of the hand at the level of the fourth and fifth metatarsal heads. No solid enhancing mass identified deep to this marker. A blood vessel courses deep to this marker there is mild fluid/edema adjacent to this blood vessel. Flexor and extensor tendons are intact. Musculature of the hand appears normal. No fracture. Degenerative changes of the first carpometacarpal joint. IMPRESSION: A small amount of fluid and edema surrounding a blood vessel deep to the marker placed on the skin of the hand most likely represents a focal area of superficial phlebitis. Continued clinical surveillance recommended. Report reported and signed by LARRY CARDONA on 03/07/2022 1304 Normal [facility] Director Content Marketing Vital Signs Date Time Vital Sign Value Performing Clinician Facility 02-09-2023 13:00-0400 Body height 172.72 cm Jo Khoury Other [facility] Other 02-09-2023 13:00-0400 Body mass index (BMI) [Ratio] 26 kg/m2 Jo Villaley Other [facility] Other 02-09-2023 13:00-0400 Body temperature 97.4 [degF] Jo Iraida Other [facility] Other 02-09-2023 13:00-0400 Body weight 77.57 kg Jo Iraida Other [facility] Other 02-09-2023 13:00-0400 Diastolic blood pressure 78 mm[Hg] Jo Iraida Other [facility] Other 02-09-2023 13:00-0400 Respiratory rate 18 /min Jo Iraida Other [facility] Other 02-09-2023 13:00-0400 SaO2% (BldA) [Mass fraction] 97 % Jo Villaley Other [facility] Other 02-09-2023 13:00-0400 Systolic blood pressure 114 mm[Hg] Jo Iraida Other [facility] Other Encounters Encounter Date Encounter Type Care Provider Facility Start: 06-08-2024 End: 06-08-2024 Office outpatient visit 15 minutes Jr. Frances Caruso DO Work Phone: [facility] Comment on above: Acute pain of right knee (Primary Dx) Start: 06-08-2024 End: 06-08-2024 ambulatory FRANCES BOLDEN Not Available Start: 06-07-2024 End: 06-07-2024 Bamboo flowsheet Maria Del Carmen Todd PT [facility] Start: 06-07-2024 End: 06-07-2024 Bamboo flowsheet Maria Del Carmen Todd PT [facility] Start: 06-07-2024 End: 06-07-2024 ambulatory Maria Del Carmen Todd PT [facility] Comment on above: Primary osteoarthrit is of right knee (Primary Dx); Acute pain of right knee; S/P TKR (total knee replacement), right Start: 06-04-2024 End: 06-04-2024 Bamboo flowsheet Fred Brink BEHAVIORAL SPECIALIST [facility] Start: 06-04-2024 End: 06-04-2024 Bamboo flowsheet Fred Brink BEHAVIORAL SPECIALIST [facility] Start: 06-04-2024 End: 06-04-2024 ambulatory Fred Brink BEHAVIORAL SPECIALIST [facility] Comment on above: Primary osteoarthrit is of right knee (Primary Dx); Acute pain of right knee; S/P TKR (total knee replacement), right Start: 05-31-2024 End: 05-31-2024 Bamboo flowsheet Fred Brink BEHAVIORAL SPECIALIST [facility] Start: 05-31-2024 End: 05-31-2024 Bamboo flowsheet Fred Brink BEHAVIORAL SPECIALIST [facility] Start: 05-31-2024 End: 05-31-2024 ambulatory Fred Brink BEHAVIORAL SPECIALIST [facility] Comment on above: Primary osteoarthrit is of right knee (Primary Dx); Acute pain of right knee; S/P TKR (total knee replacement), right Start: 05-26-2024 End: 05-26-2024 Bamboo flowsheet Quiana Cruzy BEHAVIORAL SPECIALIST [facility] Start: 05-26-2024 End: 05-26-2024 Bamboo flowsheet Quiana Fordebley BEHAVIORAL SPECIALIST [facility] Start: 05-26-2024 End: 05-26-2024 ambulatory Quiana Cruzy BEHAVIORAL SPECIALIST [facility] Comment on above: Primary osteoarthrit is of right knee (Primary Dx); Acute pain of right knee; S/P TKR (total knee replacement), right Start: 05-24-2024 End: 05-24-2024 Bamboo flowsheet Fred Brink BEHAVIORAL SPECIALIST [facility] Start: 05-24-2024 End: 05-24-2024 Bamboo flowsheet Fred Brink BEHAVIORAL SPECIALIST [facility] Start: 05-24-2024 End: 05-24-2024 ambulatory Fred King BEHAVIORAL SPECIALIST [facility] Comment on above: Primary osteoarthrit is of right knee (Primary Dx); Acute pain of right knee; S/P TKR (total knee replacement), right Start: 05-21-2024 End: 05-21-2024 Bamboo flowsheet Quiana Fordebley BEHAVIORAL SPECIALIST [facility] Start: 05-21-2024 End: 05-21-2024 Bamboo flowsheet Quiana Fordebley BEHAVIORAL SPECIALIST [facility] Start: 05-21-2024 End: 05-21-2024 ambulatory Quiana Fordebley BEHAVIORAL SPECIALIST [facility] Comment on above: Primary osteoarthrit is of right knee (Primary Dx); S/P TKR (total knee replacement), right; Acute pain of right knee Start: 05-18-2024 End: 05-18-2024 Bamboo flowsheet Quiana Fordebley BEHAVIORAL SPECIALIST [facility] Start: 05-18-2024 End: 05-18-2024 Bamboo flowsheet Quiana Fordebley BEHAVIORAL SPECIALIST [facility] Start: 05-18-2024 End: 05-18-2024 ambulatory Quiaan Fordebley BEHAVIORAL SPECIALIST [facility] Comment on above: Primary osteoarthrit is of right knee (Primary Dx); S/P TKR (total knee replacement), right; Acute pain of right knee Start: 05-13-2024 End: 05-13-2024 Bamboo flowsheet Quiana Fordebley BEHAVIORAL SPECIALIST [facility] Start: 05-13-2024 End: 05-13-2024 Bamboo flowsheet Quiana Fordebley BEHAVIORAL SPECIALIST [facility] Start: 05-13-2024 End: 05-13-2024 ambulatory Quiana Fordebley BEHAVIORAL SPECIALIST [facility] Comment on above: Primary osteoarthrit is of right knee (Primary Dx); S/P TKR (total knee replacement), right; Acute pain of right knee Start: 05-11-2024 End: 05-11-2024 Bamboo flowsheet Quianajanes Fordebley BEHAVIORAL SPECIALIST [facility] Start: 05-11-2024 End: 05-11-2024 Bamboo flowsheet Quiana Kelbley BEHAVIORAL SPECIALIST [facility] Start: 05-11-2024 End: 05-11-2024 ambulatory Quiana Skelton BEHAVIORAL SPECIALIST [facility] Comment on above: Primary osteoarthrit is of right knee (Primary Dx); S/P TKR (total knee replacement), right; Acute pain of right knee Start: 05-10-2024 End: 05-10-2024 Bamboo flowsheet Jr. Frances Caruso DO Work Phone: [facility] Start: 05-10-2024 End: 05-10-2024 Bamboo flowsheet Jr. Frances Caruso DO Work Phone: [facility] Start: 05-10-2024 End: 05-10-2024 ambulatory FRANCES BOLDEN Not Available Start: 05-10-2024 End: 05-10-2024 Postop follow up visit related to original px Jr. Frances Sales Stepbernardino DO Work Phone: [facility] Comment on above: History of right kne e joint replacement (Primary Dx); Acute pain of right knee; Acute deep vein thrombosis (DVT) of right peroneal vein (HCC) (CMS/HCC) Start: 05-06-2024 End: 05-06-2024 Bamboo flowsheet Quiana Skelton BEHAVIORAL SPECIALIST [facility] Start: 05-06-2024 End: 05-06-2024 Bamboo flowsheet Quiana Skelton BEHAVIORAL SPECIALIST [facility] Start: 05-06-2024 End: 05-06-2024 ambulatory Quiana Skelton BEHAVIORAL SPECIALIST [facility] Comment on above: Primary osteoarthrit is of right knee (Primary Dx); S/P TKR (total knee replacement), right Start: 05-04-2024 End: 05-04-2024 Bamboo flowsheet Fred Brink BEHAVIORAL SPECIALIST [facility] Start: 05-04-2024 End: 05-04-2024 Bamboo flowsheet Fred Brink BEHAVIORAL SPECIALIST [facility] Start: 05-04-2024 End: 05-04-2024 ambulatory Fred King BEHAVIORAL SPECIALIST [facility] Comment on above: Primary osteoarthrit is of right knee (Primary Dx); S/P TKR (total knee replacement), right Start: 05-03-2024 End: 05-03-2024 ambulatory FRANCES BOLDEN Not Available Start: 04-30-2024 End: 04-30-2024 Bamboo flowsheet Maria Del Carmen Todd PT [facility] Start: 04-30-2024 End: 04-30-2024 Bamboo flowsheet Maria Del Carmen Todd PT [facility] Start: 04-30-2024 End: 04-30-2024 ambulatory Maria Del Carmen Todd PT [facility] Comment on above: Primary osteoarthrit is of right knee (Primary Dx); S/P TKR (total knee replacement), right Start: 04-28-2024 End: 04-29-2024 ambulatory Maria Del Carmen Todd PT [facility] Comment on above: Primary osteoarthrit is of right knee (Primary Dx); S/P TKR (total knee replacement), right Start: 04-23-2024 End: 04-23-2024 Bamboo flowsheet Quiana Skelton BEHAVIORAL SPECIALIST [facility] Start: 04-23-2024 End: 04-23-2024 Bamboo flowsheet Quiana Skelton BEHAVIORAL SPECIALIST [facility] Start: 04-23-2024 End: 04-23-2024 ambulatory Quiana Skelton BEHAVIORAL SPECIALIST [facility] Comment on above: Primary osteoarthrit is of right knee (Primary Dx); S/P TKR (total knee replacement), right Start: 04-21-2024 End: 04-21-2024 ambulatory Quiana Skelton BEHAVIORAL SPECIALIST [facility] Comment on above: Primary osteoarthrit is of right knee (Primary Dx); S/P TKR (total knee replacement), right Start: 04-19-2024 End: 04-19-2024 Bamboo flowsheet Jr. Frances Caruso DO Work Phone: [facility] Start: 04-19-2024 End: 04-19-2024 Bamboo flowsheet Jr. Frances Caruso DO Work Phone: [facility] Start: 04-19-2024 End: 04-19-2024 ambulatory FRANCES BOLDEN Not Available Start: 04-19-2024 End: 04-19-2024 Postop follow up visit related to original px Jr. Frances Caruso DO Work Phone: [facility] Comment on above: S/P TKR (total knee replacement), right (Primary Dx); Right calf pain; Acute pain of right knee Start: 04-16-2024 End: 04-16-2024 Bamboo flowsheet Quiana Kelbley BEHAVIORAL SPECIALIST [facility] Start: 04-16-2024 End: 04-16-2024 Bamboo flowsheet Quiana Kelbley BEHAVIORAL SPECIALIST [facility] Start: 04-16-2024 End: 04-16-2024 ambulatory Quiana Kelbley BEHAVIORAL SPECIALIST [facility] Comment on above: Primary osteoarthrit is of right knee (Primary Dx); S/P TKR (total knee replacement), right Start: 04-14-2024 End: 04-14-2024 Bamboo flowsheet Quiana Kelbley BEHAVIORAL SPECIALIST [facility] Start: 04-14-2024 End: 04-14-2024 Bamboo flowsheet Quiana Kelbley BEHAVIORAL SPECIALIST [facility] Start: 04-14-2024 End: 04-14-2024 ambulatory Quiana Kelbley BEHAVIORAL SPECIALIST [facility] Comment on above: Primary osteoarthrit is of right knee (Primary Dx); S/P TKR (total knee replacement), right Start: 04-12-2024 End: 04-12-2024 Bamboo flowsheet Fred Brink BEHAVIORAL SPECIALIST [facility] Start: 04-12-2024 End: 04-12-2024 Bamboo flowsheet Fred Brink BEHAVIORAL SPECIALIST [facility] Start: 04-12-2024 End: 04-12-2024 ambulatory Fred Brink BEHAVIORAL SPECIALIST [facility] Comment on above: Primary osteoarthrit is of right knee (Primary Dx); S/P TKR (total knee replacement), right Start: 04-09-2024 End: 04-09-2024 Bamboo flowsheet Quiana Kelbley BEHAVIORAL SPECIALIST [facility] Start: 04-09-2024 End: 04-09-2024 Bamboo flowsheet Quiana Kelbley BEHAVIORAL SPECIALIST [facility] Start: 04-09-2024 End: 04-09-2024 ambulatory Quiana Kelbley BEHAVIORAL SPECIALIST [facility] Comment on above: Primary osteoarthrit is of right knee (Primary Dx); S/P TKR (total knee replacement), right Start: 04-07-2024 End: 04-07-2024 Bamboo flowsheet Quiana Skelton BEHAVIORAL SPECIALIST [facility] Start: 04-07-2024 End: 04-07-2024 Bamboo flowsheet Quiana Skelton BEHAVIORAL SPECIALIST [facility] Start: 04-07-2024 End: 04-07-2024 ambulatory Quiana Skelton BEHAVIORAL SPECIALIST [facility] Comment on above: Primary osteoarthrit is of right knee (Primary Dx); S/P TKR (total knee replacement), right; Preop examination Start: 04-07-2024 End: 04-07-2024 Preprocedural examination done Quiana Skelton BEHAVIORAL SPECIALIST [facility] Start: 04-05-2024 End: 04-05-2024 Bamboo flowsheet Fred King BEHAVIORAL SPECIALIST [facility] Start: 04-05-2024 End: 04-05-2024 Bamboo flowsheet Fred King BEHAVIORAL SPECIALIST [facility] Start: 04-05-2024 End: 04-05-2024 Postop follow up visit related to original px JrFlor Caruso DO Work Phone: [facility] Comment on above: S/P TKR (total knee replacement), right (Primary Dx); Acute pain of right knee Start: 04-05-2024 End: 04-05-2024 ambulatory Fred King BEHAVIORAL SPECIALIST [facility] Comment on above: Primary osteoarthrit is of right knee (Primary Dx); S/P TKR (total knee replacement), right Start: 04-02-2024 End: 04-02-2024 Bamboo flowsheet Maria Del Carmen Todd PT [facility] Start: 04-02-2024 End: 04-02-2024 Bamboo flowsheet Maria Del Carmen Todd PT [facility] Start: 04-02-2024 End: 04-02-2024 ambulatory Maria Del Carmen Todd PT [facility] Comment on above: Primary osteoarthrit is of right knee (Primary Dx); S/P TKR (total knee replacement), right Start: 03-31-2024 End: 03-31-2024 Bamboo flowsheet Quiana Skelton BEHAVIORAL SPECIALIST [facility] Start: 03-31-2024 End: 03-31-2024 Bamboo flowsheet Quiana Skelton BEHAVIORAL SPECIALIST [facility] Start: 03-31-2024 End: 03-31-2024 ambulatory Quiana Skelton BEHAVIORAL SPECIALIST [facility] Comment on above: Primary osteoarthrit is of right knee (Primary Dx); S/P TKR (total knee replacement), right; Preop examination Start: 03-31-2024 End: 03-31-2024 Preprocedural examination done Quiana Skelton BEHAVIORAL SPECIALIST [facility] Start: 03-29-2024 End: 03-29-2024 Bamboo flowsheet Fred Loaizaink BEHAVIORAL SPECIALIST [facility] Start: 03-29-2024 End: 03-29-2024 Bamboo flowsheet Fred King BEHAVIORAL SPECIALIST [facility] Start: 03-29-2024 End: 03-29-2024 ambulatory FRED CHRISTINE [facility] Comment on above: Primary osteoarthrit is of right knee (Primary Dx); S/P TKR (total knee replacement), right; Preop examination Start: 03-29-2024 End: 03-29-2024 Preprocedural examination done Fred King BEHAVIORAL SPECIALIST [facility] Start: 03-26-2024 End: 03-26-2024 Bamboo flowsheet Fred King BEHAVIORAL SPECIALIST [facility] Start: 03-26-2024 End: 03-26-2024 Bamboo flowsheet Fred King BEHAVIORAL SPECIALIST [facility] Start: 03-26-2024 End: 03-26-2024 ambulatory FRED KING [facility] Comment on above: Primary osteoarthrit is of right knee (Primary Dx); S/P TKR (total knee replacement), right Start: 03-24-2024 End: 03-24-2024 ambulatory MARIA DEL CARMEN TODD [facility] Comment on above: Primary osteoarthrit is of right knee (Primary Dx); S/P TKR (total knee replacement), right Start: 03-22-2024 End: 03-22-2024 Bamboo flowsheet Fred Loaizaink BEHAVIORAL SPECIALIST [facility] Start: 03-22-2024 End: 03-22-2024 Bamboo flowsheet Fred Brink BEHAVIORAL SPECIALIST [facility] Start: 03-22-2024 End: 03-22-2024 ambulatory FRED LOAIZAINK [facility] Comment on above: Primary osteoarthrit is of right knee (Primary Dx); S/P TKR (total knee replacement), right; Preop examination Start: 03-22-2024 End: 03-22-2024 Preprocedural examination done Fred King BEHAVIORAL SPECIALIST [facility] Start: 03-19-2024 End: 03-19-2024 Bamboo flowsheet Quiana Kelbley BEHAVIORAL SPECIALIST [facility] Start: 03-19-2024 End: 03-19-2024 Bamboo flowsheet Quiana Kelbley BEHAVIORAL SPECIALIST [facility] Start: 03-19-2024 End: 03-19-2024 ambulatory QUIANA KELBLEY [facility] Comment on above: Primary osteoarthrit is of right knee (Primary Dx); S/P TKR (total knee replacement), right Start: 03-17-2024 End: 03-17-2024 Bamboo flowsheet Quiana Kelbley BEHAVIORAL SPECIALIST [facility] Start: 03-17-2024 End: 03-17-2024 Bamboo flowsheet Quiana Kelbley BEHAVIORAL SPECIALIST [facility] Start: 03-17-2024 End: 03-17-2024 Preprocedural examination done Quiana Fordebley BEHAVIORAL SPECIALIST [facility] Start: 03-17-2024 End: 03-17-2024 ambulatory Quiana Kelbley BEHAVIORAL SPECIALIST [facility] Comment on above: Primary osteoarthrit is of right knee (Primary Dx); S/P TKR (total knee replacement), right; Preop examination Start: 03-15-2024 End: 03-15-2024 Bamboo flowsheet Fred Brink BEHAVIORAL SPECIALIST [facility] Start: 03-15-2024 End: 03-15-2024 Bamboo flowsheet Fred Brink BEHAVIORAL SPECIALIST [facility] Start: 03-15-2024 End: 03-15-2024 Preprocedural examination done Fred Loaizaink BEHAVIORAL SPECIALIST [facility] Start: 03-15-2024 End: 03-15-2024 ambulatory Fred Brink BEHAVIORAL SPECIALIST [facility] Comment on above: Primary osteoarthrit is of right knee (Primary Dx); S/P TKR (total knee replacement), right; Preop examination Start: 03-12-2024 End: 03-12-2024 Bamboo flowsheet Fred King BEHAVIORAL SPECIALIST [facility] Start: 03-12-2024 End: 03-12-2024 Bamboo flowsheet Fred King BEHAVIORAL SPECIALIST [facility] Start: 03-12-2024 End: 03-12-2024 Preprocedural examination done Fred King BEHAVIORAL SPECIALIST [facility] Start: 03-12-2024 End: 03-12-2024 ambulatory Fred King BEHAVIORAL SPECIALIST [facility] Comment on above: Primary osteoarthrit is of right knee (Primary Dx); S/P TKR (total knee replacement), right; Preop examination Start: 03-10-2024 End: 03-10-2024 Bamboo flowsheet Daniel RAYMOND Work Phone: [facility] Start: 03-10-2024 End: 03-10-2024 Bamboo flowsheet Daniel Em PA Work Phone: [facility] Start: 03-10-2024 End: 03-10-2024 ambulatory QUIANA SKELTON [facility] Comment on above: Primary osteoarthrit is of right knee (Primary Dx); S/P TKR (total knee replacement), right Start: 03-10-2024 End: 03-10-2024 ambulatory DANIEL EM Not Available Start: 03-10-2024 End: 03-10-2024 Postop follow up visit related to original px Daniel RAYMOND Work Phone: [facility] Comment on above: S/P TKR (total knee replacement), right (Primary Dx); Acute deep vein thrombosis (DVT) of right peroneal vein (HCC) ([facility]/HCC) Start: 03-08-2024 End: 03-08-2024 Telephone encounter Daniel RAYMOND Work Phone: [facility] Start: 03-08-2024 End: 03-08-2024 ambulatory MARIA DEL CARMEN TODD [facility] Comment on above: Primary osteoarthrit is of right knee (Primary Dx); S/P TKR (total knee replacement), right Start: 02-25-2024 End: 02-25-2024 Bamboo flowsheet Daniel Em PA Work Phone: [facility] Start: 02-25-2024 End: 02-25-2024 Bamboo flowsheet Daniel Em PA Work Phone: [facility] Start: 02-25-2024 End: 02-25-2024 Telephone encounter Daniel RAYMOND Work Phone: [facility] Start: 02-25-2024 End: 02-25-2024 ambulatory DANIEL EM Not Available Start: 02-25-2024 End: 02-25-2024 Postop follow up visit related to original px Daniel RAYMOND Work Phone: [facility] Comment on above: S/P TKR (total knee replacement), right (Primary Dx); Right calf pain; Post-operative pain Start: 02-25-2024 End: 02-25-2024 ambulatory DANIEL EM Not Available Start: 02-16-2024 End: 02-16-2024 Stone Preciado NP Work Phone: [facility] Comment on above: Post-operative pain Start: 01-29-2024 End: 01-29-2024 ambulatory ALFRED LAWRENCE Not Available Start: 01-26-2024 End: 01-26-2024 ambulatory BENNY HAY Not Available Start: 01-14-2024 Encounter for other preprocedural examination DANIEL EM [facility] Start: 01-14-2024 End: 01-14-2024 ambulatory DANIEL EM [facility] Start: 01-14-2024 End: 01-14-2024 ambulatory DANIEL EM Not Available Start: 11-03-2023 End: 11-03-2023 ambulatory FRANCES BOLDEN Not Available Start: 10-23-2023 End: 10-23-2023 ambulatory ALFRED LAWRENCE Not Available Start: 07-04-2023 End: 07-04-2023 ambulatory DANIEL EM Not Available Start: 02-09-2023 End: 02-09-2023 ambulatory Jo Khoury Other [facility] Other Start: 02-09-2023 Office outpatient ne w 20 minutes Jo Khoury [facility] [place] Start: 06-25-2022 End: 06-26-[address] ALFRED LAWRENCE Facility:[facility]1 Start: 06-12-2022 End: 06-13-[address] ALFRED LAWRENCE Facility:[facility] Procedures Date Procedure Procedure Detail Performing Clinician Start: 04-05-2024 Radiologic examinati on knee 1/2 views Jr. Frances Caruso DO Work Phone: Start: 06-26-2023 Mammography Quiana castellanos BEHAVIORAL SPECIALIST Start: 05-29-2016 Colonoscopy Quiana Perdomo jasmin BEHAVIORAL SPECIALIST History of operative procedure on knee History of right knee joint replacement Jr. Frances Caruso DO Work Phone: Plan of Treatment Date Care Activity Detail Author Start: 05-29-2026 Screening for malign ant neoplasm of colon [facility] Start: 11-02-2024 Pneumococcal Vaccine : 65+ Years (1 of 1 - PCV) Pneumococcal Vaccine: 65+ Years (1 of 1 - PCV) [facility] Comment on above: Postponed from 10/02 (Patient Refused) Start: 10-22-2024 Medicare Annual Wellness (AWV) Medicare Annual Wellness (AWV) [facility] Start: 07-20-2024 End: 07-20-2024 Patient encounter procedure 07/20/2024 9:45 AM EST Office Visit [facility] [address] [place] [address] Jr. Frances Caruso, DO [address] [place] [address] [facility] Start: 06-26-2024 Screening for malign ant neoplasm of breast Mammogram [facility] Start: 06-08-2024 End: 06-08-2024 Patient encounter procedure 06/08/2024 9:45 AM EST Office Visit [facility] [address] [place] [id number] Jr. Frances Caruso, DO [address] [place] [address] [facility] Start: 06-07-2024 End: 06-07-2024 ambulatory 06/07/2024 10:00 AM EST Treatment [facility] [address] [place] [address] Maria Del Carmen Todd, PT [facility] Start: 06-04-2024 End: 06-04-2024 ambulatory 06/04/2024 8:30 AM EST Treatment [facility] [address] [place] [address] Fred King, BEHAVIORAL SPECIALIST [facility] Start: 05-31-2024 End: 05-31-2024 ambulatory 05/31/2024 8:00 AM EST Treatment [facility] [address] [place] [address] Fred King, BEHAVIORAL SPECIALIST [facility] Start: 05-26-2024 End: 05-26-2024 ambulatory 05/26/2024 8:00 AM EST Treatment [facility] [address] [place] [address] Quiana Skelton, BEHAVIORAL SPECIALIST [facility] Start: 05-24-2024 End: 05-24-2024 ambulatory [facility] Comment on above: Arrived Start: 05-21-2024 End: 05-21-2024 ambulatory [facility] Comment on above: Arrived Start: 05-18-2024 End: 05-18-2024 ambulatory 05/18/2024 1:30 PM EST Treatment [facility] [address] [place] [address] Quiana Skelton, BEHAVIORAL SPECIALIST Arrived [facility] Comment on above: Arrived Start: 05-10-2024 End: 05-10-2024 Patient encounter procedure 05/10/2024 8:15 AM EST Office Visit [facility] [address] [place] [address] Jr. Frances Caruso, DO [address] [place] [address] [facility] Start: 05-06-2024 End: 05-06-2024 ambulatory 05/06/2024 8:30 AM EST Treatment [facility] [address] [place] [address] Debbi Skeltonissa, BEHAVIORAL SPECIALIST [facility] Start: 05-04-2024 End: 05-04-2024 ambulatory [facility] Comment on above: Arrived Start: 05-03-2024 End: 05-03-2024 Professional / ancillary services management 05/03/2024 9:00 AM EST Ancillary Procedure [facility] [address] [facility] [address] [place] [id number] [facility] Start: 04-30-2024 End: 04-30-2024 ambulatory [facility] Comment on above: Arrived Start: 04-28-2024 End: 04-28-2024 ambulatory 04/28/2024 2:30 PM EDT Treatment [facility] [address] [place] [address] Maria Del Carmen Todd, PT [facility] Start: 04-23-2024 End: 04-23-2024 ambulatory 04/23/2024 9:00 AM EDT Treatment [facility] [address] [place] [address] Debbi Skeltonissa, BEHAVIORAL SPECIALIST [facility] Start: 04-21-2024 End: 04-21-2024 ambulatory 04/21/2024 12:30 PM EDT Treatment [facility] [address] [place] [address] Debbi Skeltonissa, BEHAVIORAL SPECIALIST [facility] Start: 04-19-2024 End: 04-19-2025 US.doppler Lower extremity vein - right Vascular US lower extremity venous duplex right Imaging Routine Right calf pain Expected: 04/19/2024, Expires: 04/19/2025 [facility] Work Phone: Comment on above: Expected: 04/19/2024 , Expires: 04/19/2025 Start: 04-19-2024 End: 04-19-2024 Patient encounter procedure 04/19/2024 8:45 AM EDT Office Visit [facility] [address] [place] [phone] Jr. Frances Caruso, DO [address] [place] [address] [facility] Start: 04-16-2024 End: 04-16-2024 ambulatory 04/16/2024 8:30 AM EDT Treatment [facility] [address] [place] [address] Quiana Skelton, BEHAVIORAL SPECIALIST [facility] Start: 04-14-2024 End: 04-14-2024 ambulatory 04/14/2024 8:30 AM EDT Treatment [facility] [address] [place] [address] Debbi Skeltonissa, BEHAVIORAL SPECIALIST [facility] Start: 04-12-2024 End: 04-12-2024 ambulatory [facility] Start: 04-09-2024 End: 04-09-2024 ambulatory [facility] Start: 04-07-2024 End: 04-07-2024 ambulatory 04/07/2024 8:30 AM EDT Treatment [facility] [address] [place] [address] Debbi Skeltonissa, BEHAVIORAL SPECIALIST [facility] Start: 04-05-2024 End: 04-05-2024 Patient encounter procedure 04/05/2024 10:15 AM EDT Office Visit [facility] [address] [place] [phone] Jr. Franecs Caruso, DO [address] [place] [address] [facility] Start: 04-05-2024 End: 04-05-2024 ambulatory 04/05/2024 8:00 AM EDT Treatment [facility] [address] [facility] [address] [place] [address] Fred King, BEHAVIORAL SPECIALIST [facility] Start: 04-02-2024 End: 04-02-2024 ambulatory [facility] Start: 03-31-2024 End: 03-31-2024 ambulatory 03/31/2024 8:30 AM EDT Treatment [facility] [address] [facility] [address] [place] [address] Quiana Skelton, BEHAVIORAL SPECIALIST [facility] Start: 03-29-2024 End: 03-29-2024 ambulatory 03/29/2024 9:00 AM EDT Treatment [facility] [address] [facility] [address] [place] [address] Fred King, BEHAVIORAL SPECIALIST [facility] Start: 03-26-2024 End: 03-26-2024 ambulatory [facility] Start: 03-24-2024 End: 03-24-2024 ambulatory 03/24/2024 8:30 AM EDT Treatment [facility] [address] [facility] [address] [place] [address] Maria Del Carmen Todd, PT [facility] Start: 03-22-2024 End: 03-22-2024 ambulatory 03/22/2024 9:00 AM EDT Treatment [facility] [address] [facility] [address] [place] [address] Fred King, BEHAVIORAL SPECIALIST [facility] Start: 03-19-2024 End: 03-19-2024 ambulatory [facility] Comment on above: Arrived Start: 03-17-2024 End: 03-17-2024 ambulatory [facility] Comment on above: Arrived Start: 03-15-2024 End: 03-15-2024 ambulatory [facility] Comment on above: Arrived Start: 03-12-2024 End: 03-12-2024 ambulatory [facility] Comment on above: Arrived Start: 03-10-2024 End: 03-10-2024 ambulatory [facility] Comment on above: Arrived Start: 03-10-2024 End: 03-10-2024 Patient encounter procedure 03/10/2024 9:30 AM EDT Office Visit [facility] [address] [place] [address] Daniel Em PA [address] [facility] [address] [place] [address] [facility] Start: 02-29-2024 Influenza vaccination Influenza Vacc ine (#1) [facility] Start: 02-27-2024 End: 02-27-2024 Patient encounter procedure 02/27/2024 9:00 AM EDT Office Visit [facility] [address] [place] [address] Daniel Em PA [address] [facility] [address] [place] [address] [facility] Start: 02-25-2024 End: 02-25-2024 Patient encounter procedure 02/25/2024 10:15 AM EDT Office Visit [facility] [address] [place] [address] Daniel Em PA [address] [facility] [address] [place] [address] S/P TKR (total knee replacement), right (Primary Dx) [facility] Comment on above: S/P TKR (total knee replacement), right (Primary Dx) Start: 1950 Screening for malign ant neoplasm of colon [facility] US.doppler Lower extremity vein - right Vascular US lower extremity venous duplex right Imaging Routine Right calf pain 02/25/2024 12:04 PM EDT [facility] Work Phone: Immunizations Immunization Date Immunization Notes Care Provider Stephany cuadra 06-10-2017 influenza, high dose seasonal, preservative-free Jo Khoury Other [facility] Other 06-10-2017 influenza virus vaccine, unspecified formulation Quiana kSelton [facility] NEGATED: Highlighted row has not occurred! 7 pneumococcal polysaccharide vaccine, 23 valent Patient Objection Jo Khoury Other [facility] Other NEGATED: Highlighted row has not occurred! 7 influenza, high dose seasonal, preservative-free Patient Objection Jo Khoury Other [facility] Other Payers Date Payer Category Payer Private Health Insurance [id number] 2021 Private Health Insurance CLI [id number] 2018 Medicare [id number] 1959 Medicare [id number] 1959 Unknown [id number] 1952 Unknown [id number] 2.16.84 0.1.256602.3.579.2.593 1952 Unknown [id number] 2.16.84 0.1.651702.3.579.2.593 1952 Unknown [id number] 2.16.8 40.1.626378.3.579.2.1286 1952 Unknown [id number] 2.16.8 40.1.303616.3.579.2.1286 1952 Unknown [id number] 2.16.8 40.1.135684.3.579.2.1286 1952 Unknown [id number] 2.16.84 0.1.704663.3.579.2.1259 1952 Unknown [id number] 2.16.84 0.1.068736.3.579.2.1259 1952 Unknown [id number] 2.16.84 0.1.473488.3.579.2.1258 1952 Unknown [id number] 2.16.84 0.1.390936.3.579.2.1258 1952 Unknown [id number] 2.16.84 0.1.309326.3.579.2.1258 1952 Unknown [id number] 2.16.84 0.1.110542.3.579.2.1258 1952 Unknown [id number] 2.16.84 0.1.980607.3.579.2.1258 1952 Unknown [id number] 2.16.84 0.1.818545.3.579.2.1258 1952 Unknown [id number] 2.16.84 0.1.544706.3.579.2.1258 1952 Unknown [id number] 2.16.84 0.1.198286.3.579.2.1258 1952 Unknown [id number] 2.16.84 0.1.855611.3.579.2.1258 1952 Unknown [id number] 2.16.84 0.1.592172.3.579.2.1258 1952 Unknown [id number] 2.16.84 0.1.466428.3.579.2.1258 1952 Unknown [id number] 2.16.84 0.1.100933.3.579.2.1258 1952 Unknown [id number] 2.16.84 0.1.931585.3.579.2.1258 1952 Unknown [id number] 2.16.84 0.1.105262.3.579.2.1258 1952 Unknown [id number] 2.16.84 0.1.489336.3.579.2.1251953 Unknown [id number] 2.16.84 0.1.393348.3.579.2.1258 1952 Unknown [id number] 2.16.84 0.1.180307.3.579.2.1258 1952 Unknown [id number] 2.16.84 0.1.469825.3.579.2.1258 1952 Unknown [id number] 2.16.84 0.1.387632.3.579.2.1258 1952 Unknown [id number] 2.16.84 0.1.880911.3.579.2.1258 1952 Unknown [id number] 2.16.84 0.1.632013.3.579.2.1258 1952 Unknown [id number] 2.16.84 0.1.839693.3.579.2.1258 1952 Unknown [id number] 2.16.84 0.1.278918.3.579.2.1258 1952 Unknown [id number] 2.16.84 0.1.167804.3.579.2.1258 1952 Unknown [id number] 2.16.84 0.1.547076.3.579.2.1258 1952 Unknown [id number] 2.16.84 0.1.067567.3.579.2.1258 1952 Unknown [id number] 2.16.84 0.1.129787.3.579.2.1258 1952 Unknown [id number] 2.16.84 0.1.761407.3.579.2.1258 1952 Unknown [id number] 2.16.84 0.1.429905.3.579.2.1258 1952 Unknown [id number] 2.16.84 0.1.310102.3.579.2.1258 1952 Unknown [id number] 2.16.84 0.1.489447.3.579.2.9 1952 Unknown [id number] 2.16.84 0.1.327179.3.579.2.1258 1952 Unknown [id number] 2.16.84 0.1.590381.3.579.2.1258 1952 Unknown [id number] 2.16.84 0.1.641298.3.579.2.1258 1952 Unknown [id number] 2.16.84 0.1.604044.3.579.2.1258 1952 Unknown [id number] 2.16.84 0.1.177512.3.579.2.1258 1952 Unknown [id number] 2.16.84 0.1.944954.3.579.2.1258 1952 Unknown [id number] 2.16.84 0.1.722868.3.579.2.1258 1952 Unknown [id number] 2.16.84 0.1.752849.3.579.2.1258 1952 Unknown [id number] 2.16.84 0.1.616057.3.579.2.1258 1952 Unknown [id number] 2.16.84 0.1.012862.3.579.2.1258 1952 Unknown [id number] 2.16.84 0.1.612462.3.579.2.1258 1952 Unknown [id number] 2.16.84 0.1.400367.3.579.2.1258 1952 Unknown [id number] 2.16.84 0.1.557240.3.579.2.1258 1952 Unknown [id number] 2.16.84 0.1.766016.3.579.2.1258 1952 Unknown [id number] 2.16.84 0.1.563596.3.579.2.1259 1952 Unknown [id number] 2.16.840 .1.949613.3.579.2.1259 Medicare [id number] 2.1 [id number] Private Health Insurance [id number] 2.16.840.1.891471.19 Social History Date Type Detail Facility Unknown if ever smoked [facility] Other Start: 10-22-2023 End: 10-23-2023 Sex Assigned At [facility] Start: 11-29-2022 Tobacco smoking status NHIS Never smoked tobacco [facility] Start: 11-29-2022 Tobacco use and exposure Smokeless tobacco non-user [facility] Start: 02-25-2024 End: 03-10-2024 Alcoholic beverage intake [facility]-drinker (finding) [facility] Start: 10-22-2023 End: 10-23-2023 History of Social function [facility] Do you belong to any clubs or organizations such as [employer] groups, unions, fraternal or athletic groups, or school groups? Yes [facility] Are you now , , , , never or living with a partner? [facility] How often to you hav e a drink containing alcohol? Monthly or less [facility] How many standard dr inks containing alcohol do you have on a typical day? 1 or 2 [facility] How often do you hav e 6 or more drinks on 1 occasion? Never [facility] How hard is it for y ou to pay for the very basics like food, housing, medical care, and heating Not hard at all [facility] Do you feel stress - tense, restless, nervous, or anxious, or unable to sleep at night because your mind is troubled all the time - these days [OSQ] Not at all [facility] (I/We) worried wheth er (my/our) food would run out before (I/we) got money to buy more. Never true [facility] In the past 12 month s, was there a time when you were not able to pay the mortgage or rent on time? No [facility] Start: 04-25-2024 Alcohol Comment 2 or 3 drinks per year [facility] Start: 1950 Sex assigned at Not on file [facility] Start: 09-11-2022 Gender identity Identifies as female gender (finding) [facility] Clinical Notes 11-04-2022 to 06-08-2024 Jr. Frances Caruso, DO - 06/08/2024 9:45 AM Isai Todd, PT - 06/07/2024 10:00 AM Thelma Costa, BEHAVIORAL SPECIALIST - 05/13/2024 10:30 AM Sarahjanes Costa, BEHAVIORAL SPECIALIST - 05/11/2024 12:30 PM EST Note Date & Type Note Facility 06-08-2024 History of Presen t illness Narrative Images from the original note were not included. HISTORY OF PRESENT ILLNESS: EST PT Rose Wu is an 73 y.o. @ female. (EST PT) S/P (R) TKA 02/12/24 (16WKS 5DAYS) ; CHECK ROM - FINISHED XARELTO / CONTINUES ASA 81MG every day XRAYS, 04/05/24 IN EPIC (R) LE VENOUS DOPPLER 05/03/24 @ [facility] (NEG DVT) (R) LE VENOUS DOPPLER 02/25/24 @ [facility] (+ DVT) NO MDP / PREDNISONE CONTINUES PHYSICAL THERAPY @ [facility] NO PAIN MGMT NOTES IMPROVEMENTS WEEKLY- FINISHED PT [facility]; INCREASE ROM/STRENGTH- SOME PAIN MEDIAL KNEE WITH STRETCHES- SOME SWELLING RT FOOT- DENIES INSTABILITY- IMPROVEMENT WITH STIFFNESS- +TYLENOL ES ALLERGIES: Allergies Allergen Reactions Alendronate Other Reaction(s): Arthralgias HOME MEDICATIONS: Current Outpatient Medications Medication Instructions calcium citrate 250 MG tablet 1 tablet, Oral, Daily cholecalciferol (VITAMIN D-3) 10,000 Units, Oral, Daily, Winter dose cholecalciferol (VITAMIN D-3) 5,000 Units, Oral, Daily, Summer Dose Multiple Vitamins-Minerals (Multi Complete) capsule Orally rivaroxaban (XARELTO) 15 mg, Oral, 2 times daily with meals, Take with food. rivaroxaban (XARELTO) 20 mg, Oral, Daily with evening meal, Take with food. rivaroxaban (XARELTO) 20 mg, Oral, Daily with evening meal, Take with food. vitamin C 1,000 mg, Oral, Daily VITAMIN K PO 1 tablet, Oral, Daily PHYSICAL EXAM: Knee Musculoskeletal Exam Gait Gait is normal. Inspection Leg length disparity: no discrepancy Right Erythema: none Effusion: none Edema: none Ecchymosis: none Deformity: none Alignment: normal Previous incision: anterolateral Incision: well-healed Palpation Right Right knee palpation is unremarkable. Increased warmth: none Masses: none Tenderness: none Range of Motion Right Right knee range of motion is normal and full. Active extension: 5 Passive extension: 0 Active flexion: 115 (103) Passive flexion: 115 Strength Right Right knee strength is normal. Extension: 5/5. Flexion: 5/5. Instability Right Instability signs: none - stable Varus stress grade: normal Valgus stress grade: normal Neurovascular Right Right knee neurovascular exam is normal. Pulses - PT: normal Posterior tibial: 2+ Capillary refill: warm and well-perfused Special Signs Right Right knee special signs are normal. Patellar apprehension: none General Constitutional: appears stated age Labored breathing: no Psychiatric: normal mood and affect Neurological: alert Skin: intact Lymphadenopathy: none Vitals: There is no height or weight on file to calculate BMI. Tobacco Use: Low Risk (03/10/2024) Patient History Smoking Tobacco Use: Never Smokeless Tobacco Use: Never Passive Exposure: Not on file Alcohol Use: Not At Risk (10/22/2023) AUDIT-C Frequency of Alcohol Consumption: Monthly or less Average Number of Drinks: 1 or 2 Frequency of Binge Drinking: Never IMAGING: Procedures No orders of the defined types were placed in this encounter. ASSESSMENT: No diagnosis found. PLAN: Extension is 3 degrees flexion is 110 degrees. She is improved from prior visit. We'll continue her on her home exercise program. If she persists or worsens, we may recommend a manipulation under anesthesia. She is better than she was before surgery. Operative lower extremity was noted to be neurovascularly intact. Patient was able to motor feet toes and ankles in all anatomic planes bilaterally with 5 out of 5 strength. Operative knee's patellar tracking was optimal and quad/ham strength was 5 out of 5 to operative lower extremity. There was no varus valgus, anterior-posterior, or rotatory instability noted to the operative knee. Swelling was well controlled, patella was not ballotable and compartments were soft to the operative lower extremity. Dorsalis pedis and posterior tibial pulses were present and equal bilaterally. There was no evidence of infection or ascending lymphangitis to operative lower extremity. Sensation to light touch was intact to all dermatomes to bilateral lower extremities. Negative Homans and negative Anand were noted bilaterally to lower extremities. Incision was healing without evidence of infection Questions answered in laymen terms at the bedside. The diagnosis, home exercise plan and any ongoing restrictions/ recommendations reviewed. If unable to be reached in office, I recommend evaluation at nearest Emergency Room if any symptoms worsened or new symptoms develop for requiring urgent evaluation. documented in this encounter [facility] 06-07-2024 History of Presen t illness Narrative Physical Therapy Treatment Visit Patient Name: Rose Wu Today's Date: 06/07/2024 Visit number: 34 Timed Code Treatment: 30 minutes Total Treatment Time: 40 minutes KX MODIFIER Time in: 1000 Time out: 1044 Encounter Diagnoses Name Primary? Primary osteoarthritis of right knee Yes Acute pain of right knee S/P TKR (total knee replacement), right History: Pt underwent surgery for right TKA on 02/11/23. Pt states she almost passed out the first night home and slid to the ground. States blood clot was found when jax were removed. Has been on blood thinner for the last 2 weeks. Pt has had more pain in right ankle and foot due to clot. Pt was independent with ambulation prior to surgery. Has been weaning off pain meds and taking more OTC meds. Pt states she lives in 2 story home; has been upstairs but not ready to sleep up there yet. Precautions: right TKA, [place] Pain: Pt states she will see tomorrow. Feels as though right knee ROM has slightly improved. Still not quite sure if she will need manipulation. Objective: PT Evaluation (03/08/2024) KNEE AROM: 24 to 70 degrees in supine PROM: 75 degrees flexion MMT: right hip 4/5, right quad and HS 4-/5 within available ROM Special Test: N/A Subjective: Continues to report tightness in R knee increased pain with knee flexion Treatment: Manual Therapy: () Delivered manual Grade II patella and Tibiofemoral mobs to right knee to increase flexion and extension ROM. Passive stretches into flex and extension. Therapeutic Exercise: (30 minutes supervised ) Guided pt through open and closed chain ther and flex ex per grid to improve R LE/ quad strength and functional mobility. Bike and additional ther ex Therapeutic Activity: () Exercises to improve dynamic activities, functional tasks, functional mobility to return to prior activity level as needed, Including stairs and stand from sit to improve ease with ADLS. Gait training: (prn ) Neuromuscular re-education: (PRN) Verbal and tactile cues to improve quad activation during QS and all other quad strengthening activities. Fair follow through. Modalities: (PRN minutes ) Assessment: Pt has completed 34 PT outpatient sessions post right TKA performed on 02-10-24. ROM of right knee is currently: 11 to 111 degrees with overpressure. Strength right quad is 4+/5 within available ROM. Pt is able to ascend 6 inch step with little to no compensation. Will continue or DC per MD recommendations tomorrow. Pt to follow up with Dr Caruso on 06/08/24 Outcome Measure: Lower Extremity Functional Scale (LEFS): 29/80 Rehab Diagnosis: right knee pain and weakness, decrease mobility, difficulty walking Short Term Goal: To be met in 2 weeks Goal 1: Pt to be instructed in home exercise program. - met Custodial Goals: To be met in 10 weeks Goal 1: Pt to report independence and compliance with home program. - met Goal 2: Pt to achieve 115 degrees right knee flexion to assist with functional tasks such as squatting. - not met Goal 3: Pt to be lacking no greater than 3 degree right knee extension to assist with proper gait. - not met Goal 4: Pt to achieve 4+/5 strength right knee flexion and extension to assist with functional mobility and ADL's. - not met Goal 5: Pt to score no less than 55/80 on LEFS indicating improved QOL. - not met Pt will benefit from skilled PT for 3x/week from 05/24/2024 to 08/02/2024 to address the above impairments. I hereby deem this POC medically necessary. Please sign below. Date: documented in this encounter [facility] 05-13-2024 History of Presen t illness Narrative Physical Therapy Treatment Visit Patient Name: Rose Wu Today's Date: 05/13/2024 Visit number: 26 Timed Code Treatment: 41 minutes Total Treatment Time: 51 minutes Time In: 10:30 AM Time Out: 11: AM KX MODIFIER Encounter Diagnoses Name Primary? Primary osteoarthritis of right knee Yes S/P TKR (total knee replacement), right Acute pain of right knee History: Pt underwent surgery for right TKA on 02/11/23. Pt states she almost passed out the first night home and slid to the ground. States blood clot was found when jax were removed. Has been on blood thinner for the last 2 weeks. Pt has had more pain in right ankle and foot due to clot. Pt was independent with ambulation prior to surgery. Has been weaning off pain meds and taking more OTC meds. Pt states she lives in 2 story home; has been upstairs but not ready to sleep up there yet. Precautions: right TKA, [place] Subjective: Pt states she believe clot is still present in lower leg; was hurting last night. No complaints of pain upon arrival. RTD 05/10/24. Pain: increases with flexion 3/10 Objective: PT Evaluation (03/08/2024) KNEE AROM: 24 to 70 degrees in supine PROM: 75 degrees flexion MMT: right hip 4/5, right quad and HS 4-/5 within available ROM Special Test: N/A Treatment: Manual Therapy: (9 minutes ) Delivered manual ther mobs to right knee to increase flexion and extension ROM. Passive stretches into flex and extension Therapeutic Exercise: (32 minutes supervised) Guided pt through open and closed chain ther and flex ex per grid to improve R LE/ quad strength and functional mobility. Pt with min compensation when ascending 6 inch step with right LE; BIKE (10 Minutes unsupervised) moving seat every 2 minutes set to hills level 3 to promote knee mobility Therapeutic Activity: () Exercises to improve dynamic activities, functional tasks, functional mobility to return to prior activity level as needed, Including stairs and stand from sit to improve ease with ADLS. Gait training: (prn ) Amb SPC in clinic with focusing on heel toe gait, stride length and sequence Neuromuscular re-education: (PRN) Verbal and tactile cues to improve quad activation during QS and all other quad strengthening activities. Fair follow through. Modalities: (PRN minutes ) CP to R knee post session to decrease pain and inflammation Assessment: Pt has completed 26 PT outpatient sessions post right TKA performed on 02-10-24. Pt tolerated manual therapy and self stretching fair this date. Was able to achieve 103 degrees right knee flexion, 10 deg from full extension with over pressure following manual. Pt to follow up with Dr Caruso on 06/08/24 Outcome Measure: Lower Extremity Functional Scale (LEFS): 29/ Rehab Diagnosis: right knee pain and weakness, decrease mobility, difficulty walking Short Term Goal: To be met in 2 weeks Goal 1: Pt to be instructed in home exercise program. - met Engineering Manager Goals: To be met in 10 weeks Goal 1: Pt to report independence and compliance with home program. - met Goal 2: Pt to achieve 115 degrees right knee flexion to assist with functional tasks such as squatting. - not met Goal 3: Pt to be lacking no greater than 3 degree right knee extension to assist with proper gait. - not met Goal 4: Pt to achieve 4+/5 strength right knee flexion and extension to assist with functional mobility and ADL's. - not met Goal 5: Pt to score no less than 55/80 on LEFS indicating improved QOL. - met Pt will benefit from skilled PT for 3x/week from 03/08/2024 to 05/17/2024 to address the above impairments. I hereby deem this POC medically necessary. Please sign below. Date: Cosigned by Benny Hay, PT at 05/13/2024 2:57 PM EST documented in this encounter [facility] 05-11-2024 History of Presen t illness Narrative Physical Therapy Treatment Visit Patient Name: Rose Wu Today's Date: 05/11/2024 Visit number: 25 Timed Code Treatment: 40 minutes Total Treatment Time: 50 minutes Time In: 12:33 PM Time Out: 1:23 PM KX MODIFIER Encounter Diagnoses Name Primary? Primary osteoarthritis of right knee Yes S/P TKR (total knee replacement), right Acute pain of right knee History: Pt underwent surgery for right TKA on 02/11/23. Pt states she almost passed out the first night home and slid to the ground. States blood clot was found when jax were removed. Has been on blood thinner for the last 2 weeks. Pt has had more pain in right ankle and foot due to clot. Pt was independent with ambulation prior to surgery. Has been weaning off pain meds and taking more OTC meds. Pt states she lives in 2 story home; has been upstairs but not ready to sleep up there yet. Precautions: right TKA, [place] Subjective: Pt states she believe clot is still present in lower leg; was hurting last night. No complaints of pain upon arrival. RTD 05/10/24. Pain: increases with flexion 3/10 Objective: PT Evaluation (03/08/2024) KNEE AROM: 24 to 70 degrees in supine PROM: 75 degrees flexion MMT: right hip 4/5, right quad and HS 4-/5 within available ROM Special Test: N/A Treatment: Manual Therapy: (14 minutes ) Delivered manual ther mobs to right knee to increase flexion and extension ROM. Passive stretches into flex and extension using multiple positions. Therapeutic Exercise: (26 minutes supervised minutes total) Guided pt through open and closed chain ther and flex ex per grid to improve R LE/ quad strength and functional mobility. Pt with min compensation when ascending 6 inch step with right LE; BIKE (10 Minutes unsupervised) moving seat every 2 minutes set to hills level 3 to promote knee mobility Therapeutic Activity: () Exercises to improve dynamic activities, functional tasks, functional mobility to return to prior activity level as needed, Including stairs and stand from sit to improve ease with ADLS. Gait training: (prn ) Amb SPC in clinic with focusing on heel toe gait, stride length and sequence Neuromuscular re-education: (PRN) Verbal and tactile cues to improve quad activation during QS and all other quad strengthening activities. Fair follow through. Modalities: (PRN minutes ) CP to R knee post session to decrease pain and inflammation Assessment: Pt has completed 25 PT outpatient sessions post right TKA performed on 02-10-24. Pt tolerated manual therapy and self stretching fair this date. Was able to achieve 103 degrees right knee flexion with over pressure following manual. Knee extension is limited to 10 degrees. Pt to follow up with Dr Caruso on 06/08/24 Outcome Measure: Lower Extremity Functional Scale (LEFS): 29/80 Rehab Diagnosis: right knee pain and weakness, decrease mobility, difficulty walking Short Term Goal: To be met in 2 weeks Goal 1: Pt to be instructed in home exercise program. - met Engineering Manager Goals: To be met in 10 weeks Goal 1: Pt to report independence and compliance with home program. - met Goal 2: Pt to achieve 115 degrees right knee flexion to assist with functional tasks such as squatting. - not met Goal 3: Pt to be lacking no greater than 3 degree right knee extension to assist with proper gait. - not met Goal 4: Pt to achieve 4+/5 strength right knee flexion and extension to assist with functional mobility and ADL's. - not met Goal 5: Pt to score no less than 55/80 on LEFS indicating improved QOL. - met Pt will benefit from skilled PT for 3x/week from 03/08/2024 to 05/17/2024 to address the above impairments. I hereby deem this POC medically necessary. Please sign below. Date: Cosigned by Benny Hay, PT at 05/12/2024 1:07 PM EST documented in this encounter [facility] 05-10-2024 History of Presen t illness Narrative Images from the original note were not included. HISTORY OF PRESENT ILLNESS: POST OP PT Rose Wu is an 73 y.o. @ female. No surgery found s/p surgery onNo surgery found EST PT S/P RT TKA 02/12/24 (12WKS 4DAYS)-HERE FOR VENOUS DOPPLER RT LE 05/03/24 EPIC +DVT 02/25/24 (7WKS 5DAYS)- XARELTO 20MG every day (RX GIVEN PER [facility])- PT JUST GOT HER LAST RX FOR XARELTO (SHOULD BE DONE ~05/16/24) XRAY RT KNEE EPIC 04/05/24 VENOUS DOPPLER 05/03/24 EPIC VENOUS DOPPLER 02/25/24 EPIC (+DVT) PT [facility] NOTES SLOW IMPROVEMENTS- FINISHED PT [facility]- +STIFFNESS- C/O TIGHTNESS IN FOOT- MINIMAL KNEE PAIN- SOME PULLING SENSATIONS WITH HEP - +TYLENOL ES - MINIMAL SWELLING- DENIES INSTABILITY- PT IS NO LONGER WEARING COMPRESSION STOCKINGS REVIEW OF SYSTEMS: General: Denies fever, fatigue or weight loss Lungs: Denies SOB Cardio: Denies chest pain GI: Denies indigestion or abdominal pain Neuro: Denies numbness or tingling, denies new onset paralysis Musculoskeletal: ( see note) PHYSICAL EXAM: Knee Musculoskeletal Exam Gait Gait is normal. Inspection Leg length disparity: no discrepancy Right Erythema: none Effusion: none Edema: none Ecchymosis: none Deformity: none Alignment: normal Previous incision: anterolateral Incision: well-healed Palpation Right Right knee palpation is unremarkable. Increased warmth: none Masses: none Tenderness: none Range of Motion Right Right knee range of motion is normal and full. Active extension: 10 Right knee active flexion: 103. Strength Right Right knee strength is normal. Extension: 5/5. Flexion: 5/5. Instability Right Instability signs: none - stable Varus stress grade: normal Valgus stress grade: normal Neurovascular Right Right knee neurovascular exam is normal. Pulses - PT: normal Posterior tibial: 2+ Capillary refill: warm and well-perfused Special Signs Right Right knee special signs are normal. Patellar apprehension: none General Constitutional: appears stated age Labored breathing: no Psychiatric: normal mood and affect Neurological: alert Skin: intact Lymphadenopathy: none Vascular US lower extremity venous duplex right EXAM: Right Lower Extremity Venous Ultrasound. REASON FOR EXAM: Hist of peroneal DVT. COMPARISON: Right lower extremity venous Doppler February 25, 2024. TECHNIQUE: Longitudinal and transverse grayscale, color Doppler, spectral wave analysis of the right lower extremity venous system. FINDINGS: The visualized common femoral, femoral, popliteal, peroneal, posterior tibial, greater saphenous veins showed normal compressibility, Doppler signal, response to augmentation and respiratory variability where applied. Peroneal veins are patent on the current study. IMPRESSION: No sonographic evidence of residual deep venous thrombosis. Peroneal veins are patent on the current exam, thrombus no longer visualized. This report is generated using voice recognition reporting ([email or web address]). On occasion, [email or web address] erroneously drops words from the report or replaces the spoken word with a similar sounding word. Please call with any questions/concerns regarding the report. Dictated and transcribed 05/04/2024/tm This report has been electronically signed and approved by the interpreting radiologist. Procedures No orders of the defined types were placed in this encounter. ASSESSMENT: No diagnosis found. PLAN: Check strength and ROM Ultrasound negative for residual clott. She will continue her Xarelto for another week. Then converted to a baby aspirin once a day for a month. We've discussed her restrictions and home exercise program. She has a 10 degree flexion contracture and 103 degrees of active flexion today. If this does not improve when I see her back in 3 weeks . We would recommend a manipulation under anesthesia. Questions answered in laymen terms at the bedside. The diagnosis, home exercise plan and any ongoing restrictions/ recommendations reviewed. If unable to be reached in office, I recommend evaluation at nearest Emergency Room if any symptoms worsened or new symptoms develop for requiring urgent evaluation. documented in this encounter [facility] 04-30-2024 History of Presen t illness Narrative Physical Therapy Treatment Visit Patient Name: Rose Wu Today's Date: 04/30/2024 Encounter Diagnoses Name Primary? Primary osteoarthritis of right knee Yes S/P TKR (total knee replacement), right Visit number: 22 Timed Code Treatment: 45 minutes Total Treatment Time: 55 minutes Time In: 10:30 AM Time Out: 11:28 AM KX MODIFIER History: Pt underwent surgery for right TKA on 02/11/23. Pt states she almost passed out the first night home and slid to the ground. States blood clot was found when jax were removed. Has been on blood thinner for the last 2 weeks. Pt has had more pain in right ankle and foot due to clot. Pt was independent with ambulation prior to surgery. Has been weaning off pain meds and taking more OTC meds. Pt states she lives in 2 story home; has been upstairs but not ready to sleep up there yet. Precautions: right TKA, [place] Subjective: Pt states she believe clot is still present in lower leg; was hurting last night. No complaints of pain upon arrival. RTD 05/10/24. Pain: increases with flexion 10 Objective: PT Evaluation (03/08/2024) KNEE AROM: 24 to 70 degrees in supine PROM: 75 degrees flexion MMT: right hip 4/5, right quad and HS 4-/5 within available ROM Special Test: N/A Treatment: Manual Therapy: (17 minutes ) Delivered manual ther mobs to right knee to increase flexion and extension ROM. Therapeutic Exercise: (28 minutes supervised) Guided pt through open and closed chain ther and flex ex per grid to improve R LE/ quad strength and functional mobility. Pt with min compensation when ascending 6 inch step with right LE Therapeutic Activity: () Exercises to improve dynamic activities, functional tasks, functional mobility to return to prior activity level as needed, Including stairs and stand from sit to improve ease with ADLS. Gait training: (prn ) Amb SPC in clinic with focusing on heel toe gait, stride length and sequence Neuromuscular re-education: (PRN) Verbal and tactile cues to improve quad activation during QS and all other quad strengthening activities. Fair follow through. Modalities: (10 minutes ) CP to R knee post session to decrease pain and inflammation Assessment: Pt has completed 22 PT outpatient sessions post right TKA performed on 02-10-24. Pt tolerated manual therapy and self stretching well this date. Pt was able to achieve 103 degrees right knee flexion with overpressure following treatment. Outcome Measure: Lower Extremity Functional Scale (LEFS): Rehab Diagnosis: right knee pain and weakness, decrease mobility, difficulty walking Short Term Goal: To be met in 2 weeks Goal 1: Pt to be instructed in home exercise program. - met Engineering Manager Goals: To be met in 10 weeks Goal 1: Pt to report independence and compliance with home program. - met Goal 2: Pt to achieve 115 degrees right knee flexion to assist with functional tasks such as squatting. - not met Goal 3: Pt to be lacking no greater than 3 degree right knee extension to assist with proper gait. - not met Goal 4: Pt to achieve 4+/5 strength right knee flexion and extension to assist with functional mobility and ADL's. - not met Goal 5: Pt to score no less than 55/80 on LEFS indicating improved QOL. - met Pt will benefit from skilled PT for 3x/week from 03/08/2024 to 05/17/2024 to address the above impairments. I hereby deem this POC medically necessary. Please sign below. Date: documented in this encounter [facility] 04-28-2024 History of Presen t illness Narrative Physical Therapy Treatment Visit Patient Name: Rose Wu Today's Date: 04/28/2024 Encounter Diagnoses Name Primary? Primary osteoarthritis of right knee Yes S/P TKR (total knee replacement), right Visit number: 21 Timed Code Treatment: 40 minutes Total Treatment Time: 50 minutes Time In: 2:30 PM Time Out: 3:25 AM KX MODIFIER History: Pt underwent surgery for right TKA on 02/11/23. Pt states she almost passed out the first night home and slid to the ground. States blood clot was found when jax were removed. Has been on blood thinner for the last 2 weeks. Pt has had more pain in right ankle and foot due to clot. Pt was independent with ambulation prior to surgery. Has been weaning off pain meds and taking more OTC meds. Pt states she lives in 2 story home; has been upstairs but not ready to sleep up there yet. Precautions: right TKA, [place] Subjective: Pt states no knee pain upon arrival, having more pain and tightness in right foot vs knee. Pain: increases with flexion 3/10 Objective: PT Evaluation (03/08/2024) KNEE AROM: 24 to 70 degrees in supine PROM: 75 degrees flexion MMT: right hip 4/5, right quad and HS 4-/5 within available ROM Special Test: N/A Treatment: Manual Therapy: (15 minutes ) Delivered manual ther mobs to right knee to increase flexion and extension ROM in supine, STM to quad and surrounding tissue to improve functional mobility and decrease pain Therapeutic Exercise: (25 minutes supervised) Guided pt through open and closed chain ther and flex ex per grid to improve R LE/ quad strength and functional mobility. BIKE () set to manual level 4.0 seat 12 to 10 (rocking) improve ext and flex of R knee - not today Therapeutic Activity: () Exercises to improve dynamic activities, functional tasks, functional mobility to return to prior activity level as needed, Including stairs and stand from sit to improve ease with ADLS. Gait training: (prn ) Amb SPC in clinic with focusing on heel toe gait, stride length and sequence Neuromuscular re-education: (PRN) Verbal and tactile cues to improve quad activation during QS and all other quad strengthening activities. Fair follow through. Modalities: (10 minutes ) CP to R knee post session to decrease pain and inflammation Assessment: Pt has completed 21 PT outpatient sessions post right TKA performed on 02-10-24. Performed contract/relax in prone to increase right knee ROM. Mobs at end range flexion in supine to increase ROM and mobility. Right knee flexion remains limited to 98 degrees. Will continue. Outcome Measure: Lower Extremity Functional Scale (LEFS): 29/80 Rehab Diagnosis: right knee pain and weakness, decrease mobility, difficulty walking Short Term Goal: To be met in 2 weeks Goal 1: Pt to be instructed in home exercise program. - met Custodial Goals: To be met in 10 weeks Goal 1: Pt to report independence and compliance with home program. - met Goal 2: Pt to achieve 115 degrees right knee flexion to assist with functional tasks such as squatting. - not met Goal 3: Pt to be lacking no greater than 3 degree right knee extension to assist with proper gait. - not met Goal 4: Pt to achieve 4+/5 strength right knee flexion and extension to assist with functional mobility and ADL's. - not met Goal 5: Pt to score no less than 55/80 on LEFS indicating improved QOL. - met Pt will benefit from skilled PT for 3x/week from 03/08/2024 to 05/17/2024 to address the above impairments. I hereby deem this POC medically necessary. Please sign below. Date: documented in this encounter [facility] 04-19-2024 History of Presen t illness Narrative Images from the original note were not included. HISTORY OF PRESENT ILLNESS: POST OP PT Rose Wu is an 73 y.o. @ female. No surgery found s/p surgery onNo surgery found EST PT S/P RT TKA 02/12/24 (9WKS 4DAYS)- FINISHED PT ALVIN OWUSU; NOTES SLIGHT IMPROVEMENT WITH ROM +DVT 02/25/24 (7WKS 5DAYS)- XARELTO 20MG every day (RX GIVEN PER MANUELITO)- PT JUST GOT HER LAST RX FOR XARELTO AND WILL BE ON 1 MORE MONTH (SHOULD BE DONE ~05/14/24) XRAY RT KNEE EPIC 04/05/24 VENOUS DOPPLER 02/25/24 EPIC (+DVT) PT ALVIN OWUSU NOTES SOME MEDIAL AND LATERAL KNEE PAIN AFTER PHYSICAL THERAPY- MINIMAL SWELLING- DENIES INSTABILITY- NOTES INCREASE PAIN AFTER PROLONG AMBULATING- +TYLENOL ES- WEARS DAYRON HOSE TYPICALLY; DOES NOT HAVE ON TODAY IN OFFICE- PT STATES THEY ARE GETTING STRETCHED OUT - NOTES SOME TIGHTNESS IN FOOT/ANKLE REVIEW OF SYSTEMS: General: Denies fever, fatigue or weight loss Lungs: Denies SOB Cardio: Denies chest pain GI: Denies indigestion or abdominal pain Neuro: Denies numbness or tingling, denies new onset paralysis Musculoskeletal: ( see note) PHYSICAL EXAM: Right Knee Exam Right knee exam is normal. Muscle Strength The patient has normal right knee strength. Range of Motion Right knee extension: 3 degrees. Right knee flexion: tightness on terminal flexion ; 93 degrees. Tests Varus: negative Valgus: negative Other Erythema: absent Scars: present (Well healed, no drainage, no erythema) Sensation: normal Pulse: present Swelling: mild Effusion: effusion (consistent with surgery) present Comments: Operative lower extremity was noted to be neurovascularly intact. Patient was able to motor feet, toes and ankles in all anatomic planes bilaterally with 5 out of 5 strength. Operative knee's patellar tracking was optimal and quad/ham strength was 5 out of 5 to operative lower extremity. There was no varus valgus, anterior-posterior, or rotatory instability noted to the operative knee. Swelling was well controlled, patella was not ballotable and compartments were soft to the operative lower extremity. Dorsalis pedis and posterior tibial pulses were present and equal bilaterally. There was no evidence of infection or ascending lymphangitis to operative lower extremity. Sensation to light touch was intact to all dermatomes to bilateral lower extremities. Negative Homans and negative Anand were noted bilaterally to lower extremities. Incision was healing without evidence of infection XR knee 1 or 2 views right Imaging Result: AP and lateral of right knee showed surgical position and alignment of prosthetic components without evidence of loosening or wear to the femoral, tibial, or patellar components. The alignment appeared to be anatomic. There was no evidence of accelerated or asymmetric wear to the patellar button or tibial tray. There was no evidence of fracture and/or dislocation. Impression: Unremarkable right total knee arthroplasty. Procedures Orders Placed This Encounter Procedures Vascular US lower extremity venous duplex right Standing Status: Future Number of Occurrences: 1 Standing Expiration Date: 04/19/2025 Scheduling Instructions: VENOUS DOPPLER RT TYRON GOTTI; NEEDS SCHEDULED FOR MAY 03, 2024- PLEASE CALL PT TO SCHEDULE TIME Order Specific Question: Reason for exam: Answer: CALF PAIN ASSESSMENT: ICD-10-CM 1. S/P TKR (total knee replacement), right Z96.651 2. Right calf pain M79.661 Vascular US lower extremity venous duplex right Vascular US lower extremity venous duplex right 3. Acute pain of right knee M25.561 PLAN: We have answered all the patients questions and explained the patients condition, decision making and plan including the risks and benefits associated with said plan in layman''s terms in a language the patient could understand easily. If patient''s symptoms significantly worsen and they cannot get a hold of us or their family physician, we have recommended that the patient proceed to the nearest emergency department (room). Dr. Caruso obtained history and examined the patient, I am acting as scribe for Dr. Caruso/ben, PLAN: We have reviewed prior (R) knee xrays. Patient has a hx of a (L) LE DVT ; currently being treated with Xarelto. We are recommending a repeat US to be completed week of 05/03 - order has been placed, [facility] will contact patient to schedule study. We have discussed her HEP and restrictions and will see her back on 05/10 to discuss US results, pending results we may referral a referral to a vascular surgeon and keep her on Xarelto vs discontinuing Xarelto use. Frances Caruso D.O. documented in this encounter [facility] 04-05-2024 History of Presen t illness Narrative Images from the original note were not included. HISTORY OF PRESENT ILLNESS: POST OP PT Rose Wu is an 73 y.o. @ female. EST PT; MOST RECENT VISIT WITH MANUELITO- S/P RT TKA 02/12/24 (7WKS 4DAYS)- C/O STIFFNESS +DVT 02/25/24 (5WKS 5DAYS)- XARELTO 20MG BID XRAY RT KNEE TODAY EPIC 04/05/24 VENOUS DOPPLER 02/25/24 EPIC (+DVT) PT [facility] CONTINUES PT NOMDonnell OWUSU 3/WK - NOTES LIMITED ROM- USING CANE TO AMBULATE- MINIMAL PAIN- +TYLENOL ES - INTERMITTENT SWELLING- WEARING DAYRON HOSE; WONDERING WHEN SHE CAN DISCONTINUE REVIEW OF SYSTEMS: General: Denies fever, fatigue or weight loss Lungs: Denies SOB Cardio: Denies chest pain GI: Denies indigestion or abdominal pain Neuro: Denies numbness or tingling, denies new onset paralysis Musculoskeletal: ( see note) PHYSICAL EXAM: Right Knee Exam Right knee exam is normal. Muscle Strength The patient has normal right knee strength. Range of Motion Extension: 10 Right knee flexion: tightness on terminal flexion ; 87 degrees. Tests Varus: negative Valgus: negative Other Erythema: absent Scars: present (Well healed, no drainage, no erythema) Sensation: normal Pulse: present Swelling: mild Effusion: effusion (consistent with surgery) present Comments: Operative lower extremity was noted to be neurovascularly intact. Patient was able to motor feet, toes and ankles in all anatomic planes bilaterally with 5 out of 5 strength. Operative knee's patellar tracking was optimal and quad/ham strength was 5 out of 5 to operative lower extremity. There was no varus valgus, anterior-posterior, or rotatory instability noted to the operative knee. Swelling was well controlled, patella was not ballotable and compartments were soft to the operative lower extremity. Dorsalis pedis and posterior tibial pulses were present and equal bilaterally. There was no evidence of infection or ascending lymphangitis to operative lower extremity. Sensation to light touch was intact to all dermatomes to bilateral lower extremities. Negative Homans and negative Anand were noted bilaterally to lower extremities. Incision was healing without evidence of infection XR knee 1 or 2 views right Imaging Result: AP and lateral of right knee showed surgical position and alignment of prosthetic components without evidence of loosening or wear to the femoral, tibial, or patellar components. The alignment appeared to be anatomic. There was no evidence of accelerated or asymmetric wear to the patellar button or tibial tray. There was no evidence of fracture and/or dislocation. Impression: Unremarkable right total knee arthroplasty. XR knee 1 or 2 views right Imaging Result: AP and lateral of right knee showed surgical position and alignment of prosthetic components without evidence of loosening or wear to the femoral, tibial, or patellar components. The alignment appeared to be anatomic. There was no evidence of accelerated or asymmetric wear to the patellar button or tibial tray. There was no evidence of fracture and/or dislocation. Impression: Unremarkable right total knee arthroplasty. Procedures Orders Placed This Encounter Procedures XR knee 1 or 2 views right Order Specific Question: Reason for exam: Answer: PAIN ASSESSMENT: ICD-10-CM 1. S/P TKR (total knee replacement), right Z96.651 2. Acute pain of right knee M25.561 XR knee 1 or 2 views right PLAN: We have answered all the patients questions and explained the patients condition, decision making and plan including the risks and benefits associated with said plan in layman''s terms in a language the patient could understand easily. If patient''s symptoms significantly worsen and they cannot get a hold of us or their family physician, we have recommended that the patient proceed to the nearest emergency department (room). Dr. Caruso obtained history and examined the patient, I am acting as scribe for Dr. Caruso/ben, PLAN: we have discussed (R) knee xrays with patient at bedside. She was dx with a DVT on 02/24 (postop) and was placed on Xarelto for 3 months (was given full supply per Manuelito, recommend repeat US once rx completed). We are recommending that she start static seated knee flexion stretches in attempt to increase her flexion ; 10 minute holds 2x/day. We have discussed her HEP and restrictions and will see her back in 2 weeks to reassess her right knee ROM, if exam warrants and she has not increased ROM we may recommend a JULES at that time. Frances Caruso D.O. documented in this encounter [facility] 04-02-2024 History of Presen t illness Narrative Physical Therapy Treatment Visit Patient Name: Rose Wu Today's Date: 04/02/2024 Encounter Diagnoses Name Primary? Primary osteoarthritis of right knee Yes S/P TKR (total knee replacement), right Visit number: 12 Timed Code Treatment: 40 minutes Total Treatment Time: 50 minutes Time In: 08:30 AM Time Out: 09:20 AM History: Pt underwent surgery for right TKA on 02/11/23. Pt states she almost passed out the first night home and slid to the ground. States blood clot was found when jax were removed. Has been on blood thinner for the last 2 weeks. Pt has had more pain in right ankle and foot due to clot. Pt was independent with ambulation prior to surgery. Has been weaning off pain meds and taking more OTC meds. Pt states she lives in [address] home; has been upstairs but not ready to sleep up there yet. Precautions: right TKA, [place] Subjective: Pt reports tightness in R knee, denies pain. RTD 04/05/24 Pain: denies Objective: PT Evaluation (03/08/2024) KNEE AROM: 24 to 70 degrees in supine PROM: 75 degrees flexion MMT: right hip 4/5, right quad and HS 4-/5 within available ROM Special Test: N/A Treatment: Manual Therapy: (14 minutes ) Delivered manual ther mobs to right knee to increase flexion and extension ROM in supine, STM to quad and surrounding tissue to improve functional mobility and decrease pain Therapeutic Exercise: (36 minutes supervised) Guided pt through open and closed chain ther and flex ex per grid to improve R LE/ quad strength and functional mobility BIKE (8 mins supervised ) set to manual level 4.0 seat 15 to 13 improve ext and flex of R knee Therapeutic Activity: () Exercises to improve dynamic activities, functional tasks, functional mobility to return to prior activity level as needed, Including stairs and stand from sit to improve ease with ADLS. Gait training: (prn ) Amb SPC in clinic with focusing on heel toe gait, stride length and sequence Neuromuscular re-education: (PRN) Verbal and tactile cues to improve quad activation during QS and all other quad strengthening activities. Fair follow through. Modalities: (PRN )IFC/CP to R knee post session to decrease pain and inflammation Assessment: Pt has completed 12 PT outpatient sessions post right TKA performed on 02-10-[address] Caruso. Amb with SPC, antalgic, slow komal with decreased ROM. ROM of right knee is currently 16 to 85 degrees. Strength with MMT 4- to 4/5 within available ROM. Will continue to progress as pt tolerates. Outcome Measure: Lower Extremity Functional Scale (LEFS): 29/80 Rehab Diagnosis: right knee pain and weakness, decrease mobility, difficulty walking Short Term Goal: To be met in 2 weeks Goal 1: Pt to be instructed in home exercise program. - met Custodial Goals: To be met in 10 weeks Goal 1: Pt to report independence and compliance with home program. - met Goal 2: Pt to achieve 115 degrees right knee flexion to assist with functional tasks such as squatting. - not met Goal 3: Pt to be lacking no greater than 3 degree right knee extension to assist with proper gait. - not met Goal 4: Pt to achieve 4+/5 strength right knee flexion and extension to assist with functional mobility and ADL's. - not met Goal 5: Pt to score no less than 55/80 on LEFS indicating improved QOL. - not met Pt will benefit from skilled PT for 3x/week from 03/08/2024 to 05/17/2024 to address the above impairments. I hereby deem this POC medically necessary. Please sign below. Date: documented in this encounter [facility] 03-24-2024 History of Presen t illness Narrative Physical Therapy Daily Visit Patient Name: Rose Wu Today's Date: 03/24/2024 Encounter Diagnoses Name Primary? Primary osteoarthritis of right knee Yes S/P TKR (total knee replacement), right Visit number: 8 Timed Code Treatment: 45 minutes Total Treatment Time: 60 minutes Time In: 829 Time Out: 940 History: Pt underwent surgery for right TKA on 02/11/23. Pt states she almost passed out the first night home and slid to the ground. States blood clot was found when jax were removed. Has been on blood thinner for the last 2 weeks. Pt has had more pain in right ankle and foot due to clot. Pt was independent with ambulation prior to surgery. Has been weaning off pain meds and taking more OTC meds. Pt states she lives in 2 story home; has been upstairs but not ready to sleep up there yet. Precautions: right TKA, [place] Subjective: Pt states pain today is not too bad. Was on her feet a lot yesterday. RTD 04/05/24 Pain: 1-2/10 presently Objective: PT Evaluation (03/08/2024) KNEE AROM: 24 to 70 degrees in supine PROM: 75 degrees flexion MMT: right hip 4/5, right quad and HS 4-/5 within available ROM Special Test: N/A Treatment: Manual Therapy: (10 minutes ) Gentle mobs to right knee to increase flexion and extension ROM in supine. Therapeutic Exercise: (25 minutes supervised) Guided pt through open and closed chain ther and flex ex per grid to improve R LE/ quad strength and functional mobility BIKE (10 mins supervised ) set to manual level 4.0 seat 16 to 14 improve ext and flex of R knee Therapeutic Activity: (prn) Exercises to improve dynamic activities, functional tasks, functional mobility to return to prior activity level as needed. Gait training: (prn ) Amb SPC in clinic with focusing on heel toe gait, stride length and sequence Neuromuscular re-education: (PRN) Balance Training, Muscle Facilitation, Dynamic Stability, Core Stabilization, and Blood Flow Restriction Training (BFRT) as needed. Verbal and tactile cues to improve quad activation during QS and all other quad strengthening activities. Fair follow through. Modalities: (15 minutes ) IFC/CP to R knee post session to decrease pain and inflammation Assessment: Pt has completed 8 PT outpatient sessions post right TKA performed on 02-10-[address] Caruso. ROM of right knee is currently 22 to 84 degrees. Strength right knee 4- to 4/5 within available ROM. Will continue to progress as pt tolerates. Outcome Measure: Lower Extremity Functional Scale (LEFS): 29/80 Rehab Diagnosis: right knee pain and weakness, decrease mobility, difficulty walking Short Term Goal: To be met in 2 weeks Goal 1: Pt to be instructed in home exercise program. Custodial Goals: To be met in 10 weeks Goal 1: Pt to report independence and compliance with home program. Goal 2: Pt to achieve 115 degrees right knee flexion to assist with functional tasks such as squatting. Goal 3: Pt to be lacking no greater than 3 degree right knee extension to assist with proper gait. Goal 4: Pt to achieve 4+/5 strength right knee flexion and extension to assist with functional mobility and ADL's. Goal 5: Pt to score no less than 55/80 on LEFS indicating improved QOL. Pt will benefit from skilled PT for 3x/week from 03/08/2024 to 05/17/2024 to address the above impairments. I hereby deem this POC medically necessary. Please sign below. Date: documented in this encounter [facility] 03-10-2024 History of Presen t illness Narrative Images from the original note were not included. HISTORY OF PRESENT ILLNESS: POST OP PT Rose Wu is an 73 y.o. @ female. EST PT S/P RT TKA 02/12/24 (3WKS 6DAYS)- WEARING DAYRON HOSE; NOTES SOME INCREASE PAIN WHEN WEARING - CONTINUES PT [facility]; PT FEELS SHE NOTICED SOME IMPROVEMENT WITH ROM THIS LAST WEEK +DVT 02/25/24 - STARTED XARELTO 15MG BID VENOUS DOPPLER 02/25/24 EPIC (+DVT) OCCASIONAL SWELLING LOWER LEG AND FOOT- USING WALKER TO AMBULATE- PT ELEVATES- OCCASIONAL KNEE PAIN- +TYLENOL- HAS NOT TAKEN PERCOCET ~1WK REVIEW OF SYSTEMS: General: Denies fever, fatigue or weight loss Lungs: Denies SOB Cardio: Denies chest pain GI: Denies indigestion or abdominal pain Neuro: Denies numbness or tingling, denies new onset paralysis Musculoskeletal: ( see note) PHYSICAL EXAM: Right Knee Exam Right knee exam is normal. Muscle Strength The patient has normal right knee strength. Range of Motion Extension: 10 Flexion: 90 (tightness on terminal flexion) Tests Varus: negative Valgus: negative Other Erythema: absent Scars: present (Well healed, no drainage, no erythema) Sensation: normal Pulse: present Swelling: mild Effusion: effusion (consistent with surgery) present Comments: Operative lower extremity was noted to be neurovascularly intact. Patient was able to motor feet, toes and ankles in all anatomic planes bilaterally with 5 out of 5 strength. Operative knee's patellar tracking was optimal and quad/ham strength was 5 out of 5 to operative lower extremity. There was no varus valgus, anterior-posterior, or rotatory instability noted to the operative knee. Swelling was well controlled, patella was not ballotable and compartments were soft to the operative lower extremity. Dorsalis pedis and posterior tibial pulses were present and equal bilaterally. There was no evidence of infection or ascending lymphangitis to operative lower extremity. Sensation to light touch was intact to all dermatomes to bilateral lower extremities. Negative Homans and negative Anand were noted bilaterally to lower extremities. Incision was healing without evidence of infection Vascular US lower extremity venous duplex right EXAM: Right Lower Extremity Venous Ultrasound: REASON FOR EXAM: Right calf pain. COMPARISON: None TECHNIQUE: Longitudinal and transverse grayscale, color Doppler, spectral wave analysis of the right lower extremity deep venous system obtained. FINDINGS: There is normal Doppler signal and compressibility of the common femoral, femoral, popliteal, posterior tibial and saphenous veins. The peroneal vein does not compress. Distended with hypoechoic material. No color flow. Findings were called to Anoop Navarrete, the ordering provider February 25, 2024 at 11:00 a.m. IMPRESSION: Acute occlusive peroneal deep venous thrombus, below the knee. *This report is generated using voice recognition reporting (triptap). On occasion [employer] erroneously drops words from the report or replaces the spoken word with similar sounding words. Please call with any questions/concerns regarding this report.* Dictated and transcribed 02/25/24/[email or web address] This report has been electronically signed and approved by the interpreting radiologist. Electronically Signed Hong Frances II, M.D. 2024-02-25 11:41:07 Procedures No orders of the defined types were placed in this encounter. ASSESSMENT: ICD-10-CM 1. S/P TKR (total knee replacement), right Z96.651 2. Acute deep vein thrombosis (DVT) of right peroneal vein (HCC) ([facility]/HCC) I82.451 rivaroxaban (Xarelto) 20 MG tablet PLAN: 10-90 after stretching. Refill on xarelto sent. Will need ultrasound on completion. F/U Dr. Caruso and recheck rom Pt very stiff on arrival, denies any severe pain.. taking tylenol... Extra time spent getting rom to 10-90. Pt then taken to therapy and placed on bicycle and able to make several full revolution. Discussed expected pain with movement and to try and relax guarding with muscles.. heel to toe gait imperative as she notes pain in anterior johnson ( johnson splint) but calf pain resolved from DVT. Questions answered in laymen terms at the bedside. The diagnosis, home exercise plan and any ongoing restrictions/ recommendations reviewed. If unable to be reached in office, I recommend evaluation at nearest Emergency Room if any symptoms worsened or new symptoms develop for requiring urgent evaluation. documented in this encounter [facility] 03-08-2024 Telephone encounter Note Order for therapy needed [facility] 03-08-2024 Miscellaneous Notes Order for therapy needed documented in this encounter [facility] 02-25-2024 Telephone encounter Note Spoke with model technician. + Peroneal dvt mid calf to ankle. Nothing behind knee. Spoke with pt.. will try to wear tedhose again, stop ASA use.. risk and benefit of Oral anticoagulant discussed.. Pt verbalized risk of bloodthinning medication and is consenting to tx vs observation with repeat ultrasound.. could consider vascular referral if more complex.. pt agreeable to start tx today with noted caution on increased bleeding from incidental fall or blood in stools to Seek Emergency tx. Pt taking Vitamin D / Not Vitamin K since surgery - advised to hold on Vitamin K at this time ( OTC med from [facility]) - Will notify therapist.. [facility] has medication in stock ready at 2pm.. Toney pending pharmacy review. [facility] 02-25-2024 Miscellaneous Notes Spoke with model technician. + Peroneal dvt mid calf to ankle. Nothing behind knee. Spoke with pt.. will try to wear tedhose again, stop ASA use.. risk and benefit of Oral anticoagulant discussed.. Pt verbalized risk of bloodthinning medication and is consenting to tx vs observation with repeat ultrasound.. could consider vascular referral if more complex.. pt agreeable to start tx today with noted caution on increased bleeding from incidental fall or blood in stools to Seek Emergency tx. Pt taking Vitamin D / Not Vitamin K since surgery - advised to hold on Vitamin K at this time ( OTC med from [facility]) - Will notify therapist.. [facility] has medication in stock ready at 2pm.. Toney pending pharmacy review. documented in this encounter [facility] 02-25-2024 History of Presen t illness Narrative Images from the original note were not included. HISTORY OF PRESENT ILLNESS: POST OP PT Rose L Fitch is an 73 y.o. @ female. No surgery found s/p surgery onNo surgery found EST PT 1ST P/O RT TKA 02/12/24 (13DAYS)- DOING WELL- NOTES SOME DISCOMFORT- CONTINUES PT [facility] 360; INCREASE ROM/STRENGTH- USING WALKER TO AMBULATE- WEARING DAYRON HOSE ON LT LEG; DISCONTINUES ON RT LEG DUE TO PAIN- +SWELLING- +PERCOCET/TYLENOL ES- JAX REMOVED WITHOUT DIFFICULTY AND STERI-STRIPS APPLIED REVIEW OF SYSTEMS: General: Denies fever, fatigue or weight loss Lungs: Denies SOB Cardio: Denies chest pain GI: Denies indigestion or abdominal pain Neuro: Denies numbness or tingling, denies new onset paralysis Musculoskeletal: ( see note) PHYSICAL EXAM: Right Ankle Exam Range of Motion Dorsiflexion: normal Plantar flexion: normal Muscle Strength Dorsiflexion: 5/5 Plantar flexion: 5/5 Right Knee Exam Muscle Strength The patient has normal right knee strength. Tenderness Right knee tenderness location: Compartments soft, expected soreness medial and lateral knee. Range of Motion Extension: 20 Flexion: 80 (tightness on terminal flexion) Tests Varus: negative Valgus: negative Other Erythema: absent Scars: present ([place] present, removed, no dehiscence or drainage) Sensation: normal Pulse: present Swelling: mild Effusion: effusion (consistent with surgery) present Comments: Operative lower extremity was noted to be neurovascularly intact. Patient was able to motor feet, toes and ankles in all anatomic planes bilaterally with 5 out of 5 strength. Operative knee's patellar tracking was optimal and quad/ham strength was 5 out of 5 to operative lower extremity. There was no varus valgus, anterior-posterior, or rotatory instability noted to the operative knee. Swelling was well controlled, patella was not ballotable and compartments were soft to the operative lower extremity. Dorsalis pedis and posterior tibial pulses were present and equal bilaterally. There was no evidence of infection or ascending lymphangitis to operative lower extremity. Sensation to light touch was intact to all dermatomes to bilateral lower extremities. Negative Homans and negative Anand were noted bilaterally to lower extremities. Incision was healing without evidence of infection XR lower extremity leg length evaluation THIS EXAM WAS PERFORMED AT [facility] Bone length evaluation History: Osteoarthritis, limb length and alignment, knee pain Comparison: None Findings: Standing frontal view of the bilateral lower extremities obtained from the iliac crest through the feet for limb length and alignment without marker device. Degenerative changes of the bilateral hips in the bilateral knees. There is bilateral valgus alignment more pronounced on the right. Right lower extremity measures 98.0 cm. Left thoracotomy 98.6 cm. Impression: Degenerative changes of both hips and both knees with right greater than left valgus alignment. Finalized by Shubham Ahn MD on 01/17/2024 10:19 AM Procedures No orders of the defined types were placed in this encounter. ASSESSMENT: ICD-10-CM 1. S/P TKR (total knee replacement), right Z96.651 PLAN: US to r/o DVT, recommend elevation and compression socks.. discussed static stretches. Pain medication use.. importance of good heel to toe gait... recheck rom in 2 wks. Pt thankful. ( Pt not currently taking Vitamin K only Vitamin D since surgery) Questions answered in laymen terms at the bedside. The diagnosis, home exercise plan and any ongoing restrictions/ recommendations reviewed. If unable to be reached in office, I recommend evaluation at nearest Emergency Room if any symptoms worsened or new symptoms develop for requiring urgent evaluation. documented in this encounter [facility] 02-25-2024 Instructions MANDI Maxwell - 02/25/2024 10:15 AM EDT Discussed Surgery: Cont Asprin 81 mg twice daily and dayron hose for additional 2 wks ( 4 wks post op) Discuss transition to outpatient therapy with your therapist. ( Bicycle Machine) Recommend static flexion and extension stretch for 10 minutes 3 times a day. Make time for ice and elevation after therapy and periods of increased activity. Follow up in 4 weeks with Xray's in office. No submerging wound pending recheck. documented in this encounter [facility] 02-16-2024 Telephone encounter Note Post op pain med refill. PDMP reviewed. [facility] 02-16-2024 Miscellaneous Notes Post op pain med refill. PDMP reviewed. documented in this encounter [facility] 01-17-2024 Note XR BONE LENGTH STUDY Bone length evaluation History: Osteoarthritis, limb length and alignment, knee pain Comparison: None Findings: Standing frontal view of the bilateral lower extremities obtained from the iliac crest through the feet for limb length and alignment without marker device. Degenerative changes of the bilateral hips in the bilateral knees. There is bilateral valgus alignment more pronounced on the right. Right lower extremity measures 98.0 cm. Left thoracotomy 98.6 cm. Impression: Degenerative changes of both hips and both knees with right greater than left valgus alignment. Finalized by Shubham Ahn MD on 01/17/2024 10:19 AM [facility] 02-09-2023 Evaluation note Encounter Date Diagnosis Assessment Notes Jan, Viral conjuncti vitis, left eye (ICD-10 - B30.9) Discussed with patient consistent with viral conjunctivitis. May continue lubricating eyedrops for symptomatic treatment, cool compresses. Discussed contagious nature, good handwashing encouraged, avoid touching eyes. Follow-up with PCP or eye doctor if not gradually improving over the next 4 to 5 days, sooner if significantly worsening or persistent purulent drainage. Patient verbalized understanding of treatment plan. [facility] Other 05-08-2023 NoteCLINICAL HISTORY: right shoulder OA bone density evaluation COMPARISON: as noted FINDINGS: Bone density measurements for the Left femoral neck are BMD 0.672 g/cm2 Tscore -1.6 Age-matched Z score 0.2, Osteopenia Bone density measurements for the Right femoral neck are BMD 0.685g/cm2 Tscore -1.5 Age-matched Z score 0.3, Osteopenia This corresponds to a 1.6% decrease from baseline obtained at 69 years of age. Bone density measurements for the Lumbar spine are BMD 0.971g/cm2 Tscore -0.7 Age-matched Z score 1.4, Normal This corresponds to a 6.9% decrease from baseline obtained at 69 years of age. FRAX SCORE 10 year probability of fracture: Major osteoporotic, 10% Hip fracture, 1.6% IMPRESSION: The bone density measurements for the femoral necks indicate OSTEOPENIA and places the patient at a mild to moderate increased risk for fracture. There may be a future risk of developing osteoporosis. Recommend follow-up exam in one year, sooner if clinically necessary. The bone density may measurements listed for the lumbar spine indicate OSTEOPOROSIS. This places the patient at a significant increased risk for fracture. Recommend follow-up exam in one year, sooner as clinically necessary. Note World Health Organization definition of osteoporosis and osteopenia for women: Normal = T score at or above -1.0 SD Osteopenia = T score between -1.0 and -2.5 SD Osteoporosis = T score at or below -2.5 SD Report reported and signed by ALEXA LAO on 11/04/20[id number] [facility]* Diagnosis Primary osteoarthritis of right knee- Primary S/P TKR (total knee replacement), right Preop examination Unspecified pre-operative examination [facility] Diagnosis Primary osteoarthritis of right knee- Primary S/P TKR (total knee replacement), right [facility] Diagnosis Primary osteoarthritis of right knee- Primary S/P TKR (total knee replacement), right [facility]* Diagnosis S/P TKR (total knee replacement), right- Primary Acute pain of right knee [facility]* Diagnosis Primary osteoarthritis of right knee- Primary S/P TKR (total knee replacement), right Preop examination Unspecified pre-operative examination [facility] Diagnosis Primary osteoarthritis of right knee- Primary S/P TKR (total knee replacement), right [facility] Diagnosis Primary osteoarthritis of right knee- Primary S/P TKR (total knee replacement), right [facility] Diagnosis Primary osteoarthritis of right knee- Primary S/P TKR (total knee replacement), right [facility] Diagnosis Primary osteoarthritis of right knee- Primary S/P TKR (total knee replacement), right [facility]* Diagnosis S/P TKR (total knee replacement), right- Primary Right calf pain Acute pain of right knee [facility]* Diagnosis Primary osteoarthritis of right knee- Primary S/P TKR (total knee replacement), right [facility]* Diagnosis History of right knee joint replacement- Primary Acute pain of right knee Acute deep vein thrombosis (DVT) of right peroneal vein (HCC) (CMS/HCC) [facility]* Diagnosis Primary osteoarthritis of right knee- Primary S/P TKR (total knee replacement), right Acute pain of right knee [facility] Diagnosis Primary osteoarthritis of right knee- Primary S/P TKR (total knee replacement), right Acute pain of right knee [facility]* Diagnosis Primary osteoarthritis of right knee- Primary S/P TKR (total knee replacement), right Acute pain of right knee [facility] Diagnosis Primary osteoarthritis of right knee- Primary Acute pain of right knee S/P TKR (total knee replacement), right [facility]* Diagnosis Primary osteoarthritis of right knee- Primary Acute pain of right knee S/P TKR (total knee replacement), right [facility] Diagnosis Primary osteoarthritis of right knee- Primary Acute pain of right knee S/P TKR (total knee replacement), right [facility] Diagnosis Primary osteoarthritis of right knee- Primary Acute pain of right knee S/P TKR (total knee replacement), right [facility]* Diagnosis Primary osteoarthritis of right knee- Primary S/P TKR (total knee replacement), right Preop examination Unspecified pre-operative examination [facility] Diagnosis Primary osteoarthritis of right knee- Primary S/P TKR (total knee replacement), right Preop examination Unspecified pre-operative examination [facility] Diagnosis Acute pain of right knee- Primary [facility]* Diagnosis Post-operative pain Other acute postoperative pain [facility]* Diagnosis S/P TKR (total knee replacement), right- Primary Right calf pain Post-operative pain Other acute postoperative pain documented in this encounter [facility]* Diagnosis Acute deep vein thrombosis (DVT) of right peroneal vein (HCC) ([facility]/HCC)- Primary [facility]* Diagnosis S/P TKR (total knee replacement), right- Primary [facility]* Diagnosis S/P TKR (total knee replacement), right- Primary Acute deep vein thrombosis (DVT) of right peroneal vein (HCC) ([facility]) [facility]* Diagnosis Primary osteoarthritis of right knee- Primary S/P TKR (total knee replacement), right documented in this encounter [facility] note* Diagnosis Primary osteoarthritis of right knee- Primary S/P TKR (total knee replacement), right documented in this encounter [facility] note* Diagnosis Primary osteoarthritis of right knee- Primary S/P TKR (total knee replacement), right Preop examination Unspecified pre-operative examination documented in this encounter [facility]Evaluation note* Diagnosis Primary osteoarthritis of right knee- Primary S/P TKR (total knee replacement), right Preop examination Unspecified pre-operative examination documented in this encounter [facility] HealthcareHistory general Narrative - Reported* Type Description Date Medical History plantar fascitis Surgical History Fusion C5,C6 Surgical History Tonsillectomy Surgical History rotator cuff tear repair right side Hospitalization History childbirth Hospitalization History sees urgical [facility] Other Reason for referral (narrative)* Consultation (Routine) - Authorized Specialty Diagnoses / Procedures Referred By Brandon raphael Referred To Contact Physical Therapy Diagnoses S/P TKR (total knee replacement), right Procedures [place] OFFICE/OUTPATIENT NEW HIGH MDM 60 MINUTES Daniel Em PA [address] [facility] [address] [place] [address] Benny Hay, PT [address] [facility] [address] [place] [address] Referral ID Status Reason Start Date Expiration Date Visits Requested Visits Authorized [id number] Authorized Consult and Treat 03/08/2024 09/04/2024 10 10 [facility] N[facility]* Consultation (Routine) - Authorized Specialty Diagnoses / Procedures Referred By Contac t Referred To Contact Physical Therapy Diagnoses S/P TKR (total knee replacement), right Procedures [place] OFFICE/OUTPATIENT NEW HIGH MDM 60 MINUTES Daniel Em PA [address] [place] [address] Maria Del Carmen Todd, PT Referral ID Status Reason Start Date Expiration Date Visits Requested Visits Authorized [id number] Authorized Consult and Treat 03/08/2024 09/04/2024 20 29 [facility] N[facility]ative* Consultation (Routine) - Authorized Specialty Diagnoses / Procedures Referred By Contac t Referred To Contact Physical Therapy Diagnoses S/P TKR (total knee replacement), right Procedures [place] OFFICE/OUTPATIENT NEW HIGH MDM 60 MINUTES Daniel Em PA 112 [facility] [address] [place] [address] Phone: tel: fax: Maria Del Carmen Todd, PT Referral ID Status Reason Start Date Expiration Date Visits Requested Visits Authorized [id number] Authorized Consult and Treat 03/08/2024 09/04/2024 20 29 [facility] N[facility]ative* Consultation (Routine) - Authorized Specialty Diagnoses / Procedures Referred By Contac t Referred To Contact Physical Therapy Diagnoses S/P TKR (total knee replacement), right Procedures [place] OFFICE/OUTPATIENT NEW HIGH MDM 60 MINUTES Daniel Em PA [address] [address] Phone: tel: fax: Maria Del Carmen Todd, PT Referral ID Status Reason Start Date Expiration Date Visits Requested Visits Authorized [id number] Authorized Consult and Treat 03/08/2024 09/04/2024 20 22 [facility] N[facility]* Consultation (Routine) - Authorized Specialty Diagnoses / Procedures Referred By Contac t Referred To Contact Physical Therapy Diagnoses S/P TKR (total knee replacement), right Procedures [place] OFFICE/OUTPATIENT NEW HIGH [facility] 60 MINUTES Daniel Em PA 112 [facility] [address] [place] [address] Phone: tel: fax: Maria Del Carmen Todd, PT Referral ID Status Reason Start Date Expiration Date Visits Requested Visits Authorized [id number] Authorized Consult and Treat 03/08/2024 09/04/2024 20 30 [facility] N[facility]ative* Consultation (Routine) - Authorized Specialty Diagnoses / Procedures Referred By Contac t Referred To Contact Physical Therapy Diagnoses S/P TKR (total knee replacement), right Pain in right knee Procedures [place] OFFICE/OUTPATIENT NEW HIGH MDM 60 MINUTES Daniel Em PA 112 [facility] [address] [place] [address] Phone: tel: fax: Maria Del Carmen Todd, PT Referral ID Status Reason Start Date Expiration Date Visits Requested Visits Authorized [id number] Authorized Consult and Treat 03/08/2024 09/04/2024 20 40 [facility] N[facility]* Consultation (Routine) - Authorized Specialty Diagnoses / Procedures Referred By Contac t Referred To Contact Physical Therapy Diagnoses S/P TKR (total knee replacement), right Pain in right knee Procedures [place] OFFICE/OUTPATIENT NEW HIGH MDM 60 MINUTES Daniel Em PA 112 [facility] [address] [place] [address] Phone: tel: fax: Maria Del Carmen Todd, PT Referral ID Status Reason Start Date Expiration Date Visits Requested Visits Authorized [id number] Authorized Consult and Treat 03/08/2024 06/29/2024 20 40 [facility] Narrative* Consultation (Routine) - Authorized Specialty Diagnoses / Procedures Referred By Contac t Referred To Contact Physical Therapy Diagnoses S/P TKR (total knee replacement), right Procedures [place] OFFICE/OUTPATIENT NEW HIGH MDM 60 MINUTES Daniel Em PA 112 [facility] [address] [place] [address] Maria Del Carmen Todd, PT Referral ID Status Reason Start Date Expiration Date Visits Requested Visits Authorized [id number] Authorized Consult and Treat 03/08/2024 09/04/2024 20 20 [facility] Narrative* Consultation (Routine) - Authorized Specialty Diagnoses / Procedures Referred By Brandon t Referred To Contact Physical Therapy Diagnoses S/P TKR (total knee replacement), right Procedures [place] OFFICE/OUTPATIENT NEW HIGH MDM 60 MINUTES Daniel Em PA [address] [facility] [address] [place] [address] Maria Del Carmen Todd PT Referral ID Status Reason Start Date Expiration Date Visits Requested Visits Authorized [id number] Authorized Consult and Treat 03/08/2024 09/04/2024 10 10 [facility] Summary Purpose Family History No Family History Records FoundNo Family History Records FoundNo Family History Records FoundNo Family History Records Found Advance Directives Documents on File Type Date 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 Advance Directives and Living Will 03/23/2019 2019-03-23 Advance Directives Documents on File Type Date 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 Advance Directives and Living Will 03/23/2019 2019-03-23 Advance Directives Reason for Referral Specialty Diagnoses / Procedures Referred By Brandon t Referred To Contact Radiology Diagnoses Right calf pain Procedures Vascular US lower extremity venous duplex right Daniel Em PA [address] [place] [address] [facility] [address] [facility] [address] [place] [address] Referral ID Status Reason Start Date Expiration Date Visits Re quested Visits Authorized [id number] Closed 02/25/2024 08/23/2024 1 1 Additional Source Comments INFORMATION SOURCE (unrecogn ized section and content) DATE CREATED AUTHOR 06/28/2022 [facility] DATE CREATED AUTHOR AUTHOR'S ORGANIZ ATION 11/05/2022 [facility] dical Specialist DATE CREATED AUTHOR AUTHOR'S ORGANIZ ATION 01/18/2024 [facility] DATE CREATED AUTHOR AUTHOR'S ORGANIZ ATION 06/10/2024 [facility] dical Specialists EPIC REASON FOR VISIT (unrecogniz ed section and content) Reason Comments Pain Reason Comments Pain Care Teams (unrecognized sec tion and content) Lawyer Relationship Specialty Start Date End Date Alfred Lawrence MD [address] [place] [address] (Fax) PCP - ACO Reach 11/21/22 Alfred Lawrence MD [address] [place] [address] (Fax) PCP - General Family Medicine 11/28/22 Lawyer Relationship Specialty Start Date End Date Alfred Lawrence MD [address] [place], [facility]11 (Fax) PCP - ACO Reach 11/21/22 Alfred Lawrence MD [address] [place], [facility]11 (Fax) PCP - General Family Medicine 11/28/22 Lawyer Relationship Specialty Start Date End Date Alfred Lawrence MD [address] [place], [facility]11 (Fax) PCP - ACO Reach 11/21/22 Alfred Lawrence MD [address] [place], [facility]11 (Fax) PCP - General Family Medicine 11/28/22 Lawyer Relationship Specialty Start Date End Date Alfred Lawrence MD [address] [place] [address] (Fax) PCP - ACO Reach 11/21/22 Alfred Lawrence MD [address] [facility] [place] [address] (Fax) PCP - General Family Medicine 11/28/22 Lawyer Relationship Specialty Start Date End Date Alfred Lawrence MD [address] [facility] [place], [facility]11 (Fax) PCP - ACO Reach 11/21/22 Alfred Lawrence MD [address] [facility] (Fax) PCP - General Family Medicine 11/28/22 Lawyer Relationship Specialty Start Date End Date Alfred Lawrence MD [address] [facility], [facility] (Fax) PCP - ACO Reach 11/21/22 Alfred Lawrence MD [address] [facility], [facility]11 (Fax) PCP - General Family Medicine 11/28/22 Lawyer Relationship Specialty Start Date End Date Alfred Lawrence MD [address] [facility] [id number] (Fax) PCP - ACO Reach 11/21/22 Alfred Lawrence MD [address] [facility], [facility] (Fax) PCP - General Family Medicine 11/28/22 Lawyer Relationship Specialty Start Date End Date Alfred Lawrence MD [address] [facility] (Fax) PCP - ACO Reach 11/21/22 Alfred Lawrence MD [address] [place] [address] (Fax) PCP - General Family Medicine 11/28/22 Lawyer Relationship Specialty Start Date End Date Alfred Lawrence MD [address] [place] [address] (Fax) PCP - ACO Reach 11/21/22 Alfred Lawrence MD [address] [place] [address] (Fax) PCP - General Family Medicine 11/28/22 Lawyer Relationship Specialty Start Date End Date Alfred Lawrence MD [address] [place] [address] (Fax) PCP - ACO Reach 11/21/22 Alfred Lawrence MD [address] [place] [address] (Fax) PCP - General Family Medicine 11/28/22 Lawyer Relationship Specialty Start Date End Date Alfred Lawrence MD [address] [place] [address] (Fax) PCP - ACO Reach 11/21/22 Alfred Lawrence MD [address] [place] [address] (Fax) PCP - General Family Medicine 11/28/22 Lawyer Relationship Specialty Start Date End Date Alfred Lawrence MD [address] [place] [address] (Fax) PCP - ACO Reach 11/21/22 Alfred Lawrence MD [address] [place] [address] (Fax) PCP - General Family Medicine 11/28/22 Lawyer Relationship Specialty Start Date End Date Alfred Lawrence MD [address] [place] [address] (Fax) PCP - ACO Reach 11/21/22 Alfred Lawrence MD [address] [place] [address] (Fax) PCP - General Family Medicine 11/28/22 Lawyer Relationship Specialty Start Date End Date Alfred Lawrence MD [address] [place], [facility]11 (Fax) PCP - ACO Reach 11/21/22 Alfred Lawrence MD [address] [place], [facility]11 (Fax) PCP - General Family Medicine 11/28/22 Lawyer Relationship Specialty Start Date End Date Alfred Lawrence MD [address] [place], [facility]11 (Fax) PCP - ACO Reach 11/21/22 Alfred Lawrence MD [address] [place] [address] (Fax) PCP - General Family Medicine 11/28/22 Lawyer Relationship Specialty Start Date End Date Alfred Lawrence MD [address] [place] [address] (Fax) PCP - ACO Reach 11/21/22 Alfred Lawrence MD [address] [place] [address] (Fax) PCP - General Family Medicine 11/28/22 Lawyer Relationship Specialty Start Date End Date Alfred Lawrence MD [address] [place] [address] (Fax) PCP - ACO Reach 11/21/22 Alfred Lawrence MD [address] [place] [address] (Fax) PCP - General Family Medicine 11/28/22 Lawyer Relationship Specialty Start Date End Date Alfred Lawrence MD [address] [place] [address] (Fax) PCP - ACO Reach 11/21/22 Alfred Lawrence MD [address] [place] [address] (Fax) PCP - General Family Medicine 11/28/22 Lawyer Relationship Specialty Start Date End Date Alfred Lawrence MD [address] [place] [address] (Fax) PCP - ACO Reach 11/21/22 Alfred Lawrence MD [address] [place] [address] (Fax) PCP - General Family Medicine 11/28/22 Lawyer Relationship Specialty Start Date End Date Alfred Lawrence MD [address] [place] [address] (Fax) PCP - ACO Reach 11/21/22 Alfred Lawrence MD [address] [place] [address] (Fax) PCP - General Family Medicine 11/28/22 Lawyer Relationship Specialty Start Date End Date Alfred Lawrence MD [address] [place] [address] (Fax) PCP - ACO Reach 11/21/22 Alfred Lawrence MD [address] [place] [address] (Fax) PCP - General Family Medicine 11/28/22 Lawyer Relationship Specialty Start Date End Date Alfred Lawrence MD [address] [place] [address] (Fax) PCP - ACO Reach 11/21/22 Alfred Lawrence MD [address] [place] [address] (Fax) PCP - General Family Medicine 11/28/22 Lawyer Relationship Specialty Start Date End Date Alfred Lawrence MD [address] [place] [address] (Fax) PCP - ACO Reach 11/21/22 Alfred Lawrence MD [address] [place] [address] (Fax) PCP - General Family Medicine 11/28/22 Lawyer Relationship Specialty Start Date End Date Alfred Lawrence MD [address] [place] [address] (Fax) PCP - ACO Reach 11/21/22 Alfred Lawrence MD [address] [place] [address] (Fax) PCP - General Family Medicine 11/28/22 Lawyer Relationship Specialty Start Date End Date Alfred Lawrence MD [address] [place] [address] (Fax) PCP - ACO Reach 11/21/22 Alfred Lawrence MD [address] [place] [address] (Fax) PCP - General Family Medicine 11/28/22 Lawyer Relationship Specialty Start Date End Date Alfred Lawrence MD [address] [place] [address] (Fax) PCP - ACO Reach 11/21/22 Alfred Lawrence MD [address] [place] [address] (Fax) PCP - General Family Medicine 11/28/22 Lawyer Relationship Specialty Start Date End Date Alfred Lawrence MD [address] [place] [address] (Fax) PCP - ACO Reach 11/21/22 Alfred Lawrence MD [address] [place] [address] (Fax) PCP - General Family Medicine 11/28/22 Lawyer Relationship Specialty Start Date End Date Alfred Lawrence MD [address] [place] [address] (Fax) PCP - ACO Reach 11/21/22 Alfred Lawrence MD [address] [place] [address] (Fax) PCP - General Family Medicine 11/28/22 Lawyer Relationship Specialty Start Date End Date Alfred Lawrence MD [address] [place], [place] [phone] (Fax) PCP - ACO Reach 11/21/22 Alfred Lawrence MD [address] [place] [phone] (Fax) PCP - General Family Medicine 11/28/22 Lawyer Relationship Specialty Start Date End Date Alfred Lawrence MD [address] [place] [phone] (Fax) PCP - ACO Reach 11/21/22 Alfred Lawrence MD [address] [place] [address] (Fax) PCP - General Family Medicine 11/28/22 Lawyer Relationship Specialty Start Date End Date Alfred Lawrence MD [address] [place] [address] (Fax) PCP - ACO Reach 11/21/22 Alfred Lawrence MD [address] [place] [address] (Fax) PCP - General Family Medicine 11/28/22 Lawyer Relationship Specialty Start Date End Date Alfred Lawrence MD [address] [address] (Fax) PCP - ACO Reach 11/21/22 Alfred Lawrence MD [address] [address] (Fax) PCP - General Family Medicine 11/28/22 Lawyer Relationship Specialty Start Date End Date Alfred Lawrence MD [address] [place] [address] (Fax) PCP - ACO Reach 11/21/22 Alfred Lawrence MD [address] [place] [address] (Fax) PCP - General Family Medicine 11/28/22 Lawyer Relationship Specialty Start Date End Date Alfred Lawrence MD [address] [place] [address] (Fax) PCP - ACO Reach 11/21/22 Alfred Lawrence MD [address] [place] [address] (Fax) PCP - General Family Medicine 11/28/22 Lawyer Relationship Specialty Start Date End Date Alfred Lawrence MD [address] [place] [address] (Fax) PCP - ACO Reach 11/21/22 Alfred Lawrence MD [address] [place] [address] (Fax) PCP - General Family Medicine 11/28/22 Lawyer Relationship Specialty Start Date End Date Alfred Lawrence MD [address] [place] [address] (Fax) PCP - ACO Reach 11/21/22 Alfred Lawrence MD [address] [place] [address] (Fax) PCP - General Family Medicine 11/28/22 Lawyer Relationship Specialty Start Date End Date Alfred Lawrence MD [address] [place] [address] (Fax) PCP - ACO Reach 11/21/22 Alfred Lawrence MD [address] [place] [address] (Fax) PCP - General Family Medicine 11/28/22 Lawyer Relationship Specialty Start Date End Date Alfred Lawrence MD [address] [place], [facility] (Fax) PCP - ACO Reach 11/21/22 Alfrde Lawrence MD [address] [place], [facility] (Fax) PCP - General Family Medicine 11/28/22 Lawyer Relationship Specialty Start Date End Date Alfred Lawrence MD [address] [place] [address] (Fax) PCP - ACO Reach 11/21/22 Alfred Lawrence MD [address] [place] [address] (Fax) PCP - General Family Medicine 11/28/22 Lawyer Relationship Specialty Start Date End Date Alfred Lawrence MD [address] [place] [address] (Fax) PCP - ACO Reach 11/21/22 Alfred Lawrence MD [address] [place] [address] (Fax) PCP - General Family Medicine 11/28/22 Lawyer Relationship Specialty Start Date End Date Alfred Lawrence MD [address] [place] [address] (Fax) PCP - ACO Reach 11/21/22 Alfred Lawrence MD [address] [place] [address] (Fax) PCP - General Family Medicine 11/28/22 Lawyer Relationship Specialty Start Date End Date Alfred Lawrence MD [address] [place] [address] (Fax) PCP - ACO Reach 11/21/22 Alfred Lawrence MD [address] [place] [address] (Fax) PCP - General Family Medicine 11/28/22 Lawyer Relationship Specialty Start Date End Date Alfred Lawrence MD [address] [place] [address] (Fax) PCP - ACO Reach 11/21/22 Alfred Lawrence MD [address] [place] [address] (Fax) PCP - General Family Medicine 11/28/22 FOR RECORDS PERTAINING TO PATIENTS WHO ARE OR HAVE BEEN ENROLLED IN A CHEMICAL DEPENDENCY/SUBSTANCEABUSE PROGRAM, SOME INFORMATION MAY BE OMITTED. This clinical summary was aggregated from multiple sources. Caution should be exercised in using it in the provision of clinical care. This summary normalizes information from multiple sources, and as a consequence, information in this document may materially change the coding, format and clinical context of patient data. In addition, data may be omitted in some cases. CLINICAL DECISIONS SHOULD BE BASED ON THE PRIMARY CLINICAL RECORDS. [facility]. provides no warranty or guarantee of the accuracy or completeness of information in this document.
== END 2024-07-12 08:22 | disposition home or self-care (01) ==
LOC: MAMMO 08:21
PROVIDERS: PCP Family Medicine; Visit Provider Family Medicine
DX: Z12.31 Encounter for screening mammogram for malignant neoplasm of breast (principal); Z80.7 Family history of other malignant neoplasms of lymphoid, hematopoietic and related tissues
CPT/HCPCS: 77063; 77067

== ENCOUNTER 2025-06-02 13:48 | Emergency (ER) | payer MEDICARE, SELFPAY ==
--- OUTSIDE RECORDS SUMMARY | 2025-06-02 08:31 | XMS_ITS | Continuity of Care Document ---
Author Organization [facility] Address [address] [place] [address] Phone Care Team Providers Care Chief Strategy Officer Name Role Phone Omero Pulido DO Primary Care Provider Edna Smith APRN Attending Provider Care Teams Patient Care Team Team Status: Active Member Role/Relationship Status Dates Omero Pulido DO Primary Care Provider Active Patient Care Team Team Status: Inactive Member Role/Relationship Status Dates Omero Pulido DO Primary Care Provider Active Start: June 02, 2025 End: June 02Fredy Che ProviderActiveStart: June 02, 2025 End: June 02, 2025 Chief Complaint and Reason for Visit Chief Complaint Admit Date Left knee pain after shoveling June 02, 2025 12:49pm Reason for Visit Admit Date Left leg swelling June 02, 2025 1 2:49pm Allergies, Adverse Reactions, Alerts Allergen Type Severity Reaction Last Updated Verified Status alendronate sodium Allergy Unknown arthralgias Decem 2024 12:50pm Yes Active Social History Smoking Status Status Start Date End Date Date of Observa tion Never smoked tobacco (finding) June 02, 2025 1:16pm Observation Status Observation Response Date of Response Legal Sex Female (finding) [facility] 1950 Family History Relationship Condition Age at Onset Recorded Date/T taisha father Large cell lymphoma Unknown DeceasedUnknownMalignant neoplasmUnknownmotherDeceasedUnknown Problems Active Problems Problem Diagnosis/Recorded Date Onset Date Stat Left leg swelling June 02, 2025 1:30pm Unknown Active Medications No known medications Immunizations Immunization Event Date Not Given Reason 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 Number Reason(s) Given Vaccine Information Statement (VIS) Detail Administration Location influenza, unspecified formulation May Vital Signs Vital Reading Result Reference Range Collection Date/Time Height 67 [in_i] June 02, 2025 1:35syMbursn12.47 [facility] 2024 1:11pmBody Temperature 98.3 [degF]97.6-99.0December 2024 1:11pmHeart Rate98 /mqc30-683Xjdvakqm 2024 1:11pmRespiratory rate16 /lft50-98Cbohgauc 2024 1:11pmOxygen saturation by Pulse moektjwo88 %95-100Deceab[facility] 2024 1:11pmBP Zavyolgh266 mm[Hg]100-140Decemb 2024 1:11pmBP Hdlvobjua91 mm[Hg]60-100Decemb 2024 1:11pmBMI (Body Mass Index)27.1 kg/q4Yfoslnsn 2024 1:11pm Advance Directives Advance Directive Response Recorded Date/ Time Advance Directives No June 02, 2025 12:47pm Insurance Providers Guarantor Rose Mccloud Address [address] [place] [phone] Info.Home Phone: C Coverage Status Update:2025 Payer Group Member ID Coverage Type Subscriber Relationship to Subscriber Effective Date Expiration Date [facility] [id number] E Fitch Id: [id number] [address] [place] [phone] Home Phone: Email: [email or web address] [id number] L Fitch Id: [id number] [address] [place] [phone] Home Phone: CSelf Encounters Encounter Location(s) Arrival/Admit Date Discharge/Departure Date Discharge/Departure Disposition Provider(s) Departed Physician/ Provider Office Visit -[facility] June 02, 2025 12:49pm June 02, 2025 1:30pm Discharged to home care or self care (routine discharge) Shine Buitrago APRN Recent Diagnosis Onset Date Admit Date Left leg swelling Unknown June 02, 2025 12:49pm Assessments Diagnosis Onset Date Resolution Status Admit Date Left leg swelling [facility]Deceabraz[facility] 2024 12:49pm
[2025-06-02 13:57] VITALS: BP 132/66; PULSE 93; TEMP 37.2; O2SAT 98; BMI 27.1
--- NOTE | 2025-06-02 14:01 | XR_ITS ---
The [address] [address] Patient Name: MEGHAN WU MRN: [id number] date: 1950 Sex: F Assigned Patient Location: ER Current Patient Location: ED.MAIN Accession/Order Number: [id number] Exam Date: 06/02/2025 14:10 Report Date: 06/02/2025 14:33 At the request of: YASH WALTON MD Procedure: XR knee LT 3V LEFT KNEE - 3 views CLINICAL HISTORY: c/o pain and swelling COMPARISON: None FINDINGS: Small joint effusion. Mild degenerative changes without acute bony process. XR/XR knee LT 3V IMPRESSION: MILD DEGENERATIVE CHANGES WITHOUT ACUTE BONY PROCESS. Impression dictated by: Scotty Ahmadi Jr., D.OFlor 06/02/2025 2:33 PM Dictation Location: [place] [address] Electronically authenticated by: [id number] Y Date: 06/02/2025 14:33
--- NOTE | 2025-06-02 14:38 | ED.GENADUL1 ---
HPI HPI - General Adult General Chief complaint: Extremity Injury, Lower Stated complaint: L KNEE SWELLING Time Seen by Provider: 06/02/25 14:31 Source: patient Mode of arrival: walk-in Limitations: no limitations History of Present Illness HPI narrative: 74-year-old female presented to the emergency department for left knee pain. She gives no history of injury and she is worried about a blood clot. Her pain is behind her knee and it was going down into the calf and up into the thigh. 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 No chest pain or shortness of breath. Related Data Allergies Allergy/AdvReac Type Severity Reaction Status Date / Time No Known Drug Allergies Allergy Verified 06/02/25 13:57 Opioid HPI Opioid Management Most Recent Opioid Data: Last Pain Scale 8 Today, 13:57 Review of Systems ROS Narrative A ten point review of systems is negative except as noted above. PFSH PFSH Social History Little interest or pleasure in doing things: not at all Feeling down, depressed, or hopeless: not at all Exam Narrative Exam Narrative: Nurses note and vital signs reviewed General:The patient appears well and in no apparent distress.Patient is resting comfortably on cart. Skin:Warm, dry, no pallor noted.There is no rash noted. Head:Normocephalic, atraumatic Eye: Normal conjunctiva, no drainage Ears, Nose, Mouth, and Throat: oral mucosa is moist. Nares patent. Cardiovascular:Regular Rate and Rhythm Respiratory:Patient is in no distress, no accessory muscle use Back:non-tender GI:Normal bowel sounds, no tenderness to palpation, no masses appreciated.No rebound, guarding, or rigidity noted. Musculoskeletal: The left knee is not swollen or erythematous or warm to touch. The knee joint is stable. No calf masses or tenderness. Neurological:A&O, normal speech Psychiatric:Cooperative Constitutional Vital Signs, click to edit/add: Last Vital Signs Temp 98.9 F 06/02/25 13:57 Pulse 93 H 06/02/25 13:57 Resp 16 06/02/25 13:57 BP 132/66 06/02/25 13:57 Pulse Ox 98 06/02/25 13:57 O2 Del Method Room Air 06/02/25 13:57 Course Vital Signs Vital signs: Vital Signs Temperature 98.9 F 06/02/25 13:57 Pulse Rate 93 H 06/02/25 13:57 Respiratory Rate 16 06/02/25 13:57 Blood Pressure 132/66 06/02/25 13:57 Pulse Oximetry 98 06/02/25 13:57 Oxygen Delivery Method Room Air 06/02/25 13:57 Temperature 98.9 F 06/02/25 13:57 Pulse Rate 93 H 06/02/25 13:57 Respiratory Rate 16 06/02/25 13:57 Blood Pressure 132/66 06/02/25 13:57 Pulse Oximetry 98 06/02/25 13:57 Oxygen Delivery Method Room Air 06/02/25 13:57 Medical Decision Making MDM Narrative Medical decision making narrative: X-ray shows mild degenerative changes and Doppler is negative. She was recommended ice rest and elevation. Treatment diagnosis and follow-up were discussed with the patient. Differential Diagnosis Differential Diagnosis: DVT, knee sprain, effusion Imaging Data Knee x-ray, venous Doppler: Radiologist's impression: ITS Impressions Knee X-Ray 06/02/25 14:01 IMPRESSION: MILD DEGENERATIVE CHANGES WITHOUT ACUTE BONY PROCESS. Impression dictated by: Scotty Ahmadi Jr. DFlorOFlor 06/02/2025 2:33 PM Dictation Location: [place] [address] Electronically authenticated by: [id number] Y Date: 06/02/2025 14:33 Venous Doppler per radiology shows no DVT in the left lower extremity Discharge Plan Discharge Chief Complaint: Extremity Injury, Lower Clinical Impression: Left knee pain Patient Disposition: Home, Self-Care Time of Disposition Decision: 16:42 Condition: Good Mode of Transportation: Private Vehicle Print Language: Cypriot Instructions: Knee Pain (ED) Referrals: Physician,Non-Staff, MD [Physician] - 1 week
== END 2025-06-02 17:04 | disposition home or self-care (01) ==
PROVIDERS: Emergency Provider Emergency Medicine; PCP Family Medicine
DX: M25.562 Pain in left knee (principal); Z86.718 Personal history of other venous thrombosis and embolism; Z96.659 Presence of unspecified artificial knee joint
CPT/HCPCS: 73562; 93971; 99284